=== PATIENT | male | born 1950 | race Caucasian/White ===

== ENCOUNTER → 2016-09-17 11:42 | Outpatient (CLI) | payer MEDICARE, BC ==
[2016-05-22 09:43] VITALS: BMI 27.1
[~2016-09-17 11:42] MED LIST: ASPIRIN325 MG PO; ASPIRIN81 MG PO; CARDIZEM30 MG PO; CORDARONE200 MG PO; HYDROCODON-ACE1 EAC7 PO; K-DUR20 MEQ PO; METOPROLOL TART50 MG PO; MIRALAX17 GM PO; ZESTORETIC 20-1 EACH PO
== END | disposition home or self-care (01) ==
LOC: D.RAD 11:42
DX: C34.32 Malignant neoplasm of lower lobe, left bronchus or lung (principal)

== ENCOUNTER → 2016-10-18 19:20 | Outpatient (CLI) | payer MEDICARE, BC ==
[2016-05-22 09:43] VITALS: BMI 27.1
== END | disposition home or self-care (01) ==
LOC: D.LABREF 19:20
DX: L82.0 Inflamed seborrheic keratosis (principal)

== ENCOUNTER → 2016-12-05 08:29 | Outpatient (CLI) | payer MEDICARE, BC ==
[2016-05-22 09:43] VITALS: BMI 27.1
== END | disposition home or self-care (01) ==
LOC: D.RAD 09-17 10:00 → D.RT 08:29
DX: J44.9 Chronic obstructive pulmonary disease, unspecified (principal)

== ENCOUNTER → 2017-04-03 09:48 | Outpatient (CLI) | payer MEDICARE, BC ==
[2016-05-22 09:43] VITALS: BMI 27.1
[2017-04-03 10:37] LABS: CALC OSMOLALITY 270 mosm/kg (275-300); CALCIUM 8.5 mg/dL (8.5-10.1); CARBON DIOXIDE 29.6 mmol/L (21.0-32.0); CHLORIDE - SERUM 99 mmol/L (98-107); GLUCOSE 96 mg/dL (74-106); POTASSIUM - SERUM 4.1 mmol/L (3.5-5.1); SODIUM 136 mmol/L (136-145); UREA NITROGEN 10 mg/dL (7-18); eGFR NON AFRICAN AMERICAN 79 mL/min (90-120)
== END | disposition home or self-care (01) ==
LOC: D.LAB 09:48 → D.CT 10:30
PROVIDERS: Family Medicine
DX: R55 Syncope and collapse (principal)

== ENCOUNTER → 2017-08-09 12:31 | Outpatient (CLI) | payer MEDICARE, BC ==
[2016-05-22 09:43] VITALS: BMI 27.1
[~2017-08-09 12:31] MED LIST changes: +PRINIVIL20 MG PO
[2017-08-09 13:17] LABS: CREATININE - SERUM 0.9 mg/dL (0.6-1.3)
== END | disposition home or self-care (01) ==
LOC: D.RT 12:31
PROVIDERS: Internal Medicine Pulmonary Disease
DX: C34.90 Malignant neoplasm of unspecified part of unspecified bronchus or lung (principal)

== ENCOUNTER 2017-09-28 11:35 | Observation (INO) | payer MEDICARE, BC ==
[~2017-09-28] VITALS: Ht 170.2 cm; Wt 57.5 kg
[~2017-09-28 11:35] MED LIST changes: -PRINIVIL20 MG PO
[2017-09-28 12:23] LABS: BASOPHILS 0.2 % (0-2); EOSINOPHILS 1.8 % (0-7); HEMATOCRIT 43.5 % (42.0-54.0); HEMOGLOBIN 14.9 g/dL (13.5-17.5); IMMATURE GRANULOCYTES 0.2 % (0-5); LYMPHOCYTES 24.5 % (15-50); MCH 33.6 pg (26.0-34.0); MCHC 34.3 g/dL (31.0-37.0); MCV 98.2 fL (80.0-100.0); MEAN PLATELET VOLUME 10.5 fL (7.4-10.4); NEUTROPHILS 64.3 % (40-80); RBC 4.43 10x6/uL (4.20-6.10); RDW 12.2 % (11.5-14.5)
[2017-09-28 12:29] LABS: PLATELET COUNT 166 10x3/uL (130-400)
[2017-09-28 12:54] LABS: ALBUMIN 3.5 g/dL (3.4-5.0); ALKALINE PHOSPHATASE 82 U/L (46-116); ALT (SGPT) 16 U/L (10-68); BILIRUBIN - TOTAL 1.06 mg/dL (0.2-1.3); CALC OSMOLALITY 269 mosm/kg (275-300); CALCIUM 9.2 mg/dL (8.5-10.1); CARBON DIOXIDE 25.9 mmol/L (21.0-32.0); CHLORIDE - SERUM 98 mmol/L (98-107); GLUCOSE 135 mg/dL (74-106); POTASSIUM - SERUM 4.1 mmol/L (3.5-5.1); PROTEIN - SERUM 7.5 g/dL (6.4-8.2); SODIUM 134 mmol/L (136-145); UREA NITROGEN 13 mg/dL (7-18); eGFR NON AFRICAN AMERICAN 79 mL/min (90-120)
[2017-09-28 12:57] LABS: APPEARANCE CLEAR (CLEAR); BILIRUBIN NEGATIVE (NEGATIVE); COLOR YELLOW (YELLOW); GLUCOSE NEGATIVE (NEGATIVE); KETONE NEGATIVE (NEGATIVE); NITRITE NEGATIVE (NEGATIVE); PROTEIN NEGATIVE (NEGATIVE); SPECIFIC GRAVITY 1.005 (1.005-1.020); UROBILINOGEN NORMAL (NORMAL)
[2017-09-28 13:04] LABS: AMORPHOUS SEDIMENT <1+ /lpf (NONE SEEN); BACTERIA FEW /hpf (NONE SEEN); EPITHELIAL CELLS RARE /hpf (0-5); GRANULAR CAST OCC /lpf (NONE SEEN); WHITE CELLS - URINE OCC /hpf (0-5)
[2017-09-28 13:14] LABS: TROPONIN-I 0.097 ng/mL (0.000-0.060)
[2017-09-28 14:39] LABS: CKMB 0.6 U/L (0.0-3.6); CREATINE KINASE 39 UL (21-232)
[2017-09-28] MEDS ORDERED: PRINIVIL20 MG PO (16:45)
[2017-09-28 16:46] VITALS: BP 164/93; BMI 20.1
[2017-09-28 19:00] VITALS: BP 140/91
[2017-09-28 20:39] LABS: CREATINE KINASE 48 UL (21-232)
[2017-09-28 20:40] LABS: TROPONIN-I 0.095 ng/mL (0.000-0.060)
[2017-09-29 01:00] VITALS: BP 100/65
[2017-09-29 03:34] VITALS: BP 110/69
[2017-09-29 04:43] LABS: BASOPHILS 0.2 % (0-2); EOSINOPHILS 4.9 % (0-7); HEMATOCRIT 39.3 % (42.0-54.0); HEMOGLOBIN 13.5 g/dL (13.5-17.5); IMMATURE GRANULOCYTES 0.2 % (0-5); LYMPHOCYTES 29.9 % (15-50); MCH 33.5 pg (26.0-34.0); MCHC 34.4 g/dL (31.0-37.0); MCV 97.5 fL (80.0-100.0); MEAN PLATELET VOLUME 10.2 fL (7.4-10.4); MONOCYTES 9.2 % (2-11); NEUTROPHILS 55.6 % (40-80); PLATELET COUNT 146 10x3/uL (130-400); RBC 4.03 10x6/uL (4.20-6.10); RDW 12.1 % (11.5-14.5)
[2017-09-29 04:50] LABS: WBC 4.3 10x3/uL (4.8-10.8)
[2017-09-29 05:10] LABS: ALBUMIN 2.9 g/dL (3.4-5.0); ALKALINE PHOSPHATASE 71 U/L (46-116); ALT (SGPT) 14 U/L (10-68); CALC OSMOLALITY 271 mosm/kg (275-300); CALCIUM 8.5 mg/dL (8.5-10.1); CARBON DIOXIDE 27.1 mmol/L (21.0-32.0); CHLORIDE - SERUM 103 mmol/L (98-107); CREATININE - SERUM 0.8 mg/dL (0.6-1.3); GLUCOSE 78 mg/dL (74-106); POTASSIUM - SERUM 4.2 mmol/L (3.5-5.1); PROTEIN - SERUM 6.4 g/dL (6.4-8.2); SODIUM 137 mmol/L (136-145); UREA NITROGEN 9 mg/dL (7-18); eGFR NON AFRICAN AMERICAN > 90 mL/min (90-120)
[2017-09-29 05:34] LABS: CKMB 0.8 U/L (0.0-3.6); CREATINE KINASE 42 UL (21-232)
[2017-09-29 05:46] LABS: TROPONIN-I 0.104 ng/mL (0.000-0.060)
[2017-09-29 08:32] VITALS: BP 127/79
[2017-09-29 11:24] VITALS: BP 149/87
[2017-09-29 15:31] VITALS: Ht 170.2 cm; Wt 57.5 kg
[2017-09-29 15:46] VITALS: BP 133/101
== END 2017-09-29 16:47 | disposition home or self-care (01) ==
LOC: D.ER 11:35 → D.M2 15:15 → OBSVTIME 18:00 → D.M2 09-29 16:47
PROVIDERS: Family Medicine; Nurse Practitioner Family
DX: R42 Dizziness and giddiness (principal); R79.89 Other specified abnormal findings of blood chemistry; I25.10 Atherosclerotic heart disease of native coronary artery without angina pectoris; Z95.5 Presence of coronary angioplasty implant and graft; Z72.0 Tobacco use; E78.5 Hyperlipidemia, unspecified; I10 Essential (primary) hypertension; J44.9 Chronic obstructive pulmonary disease, unspecified

== ENCOUNTER → 2018-07-22 10:45 | Outpatient (CLI) | payer MEDICARE, BC ==
[2017-09-29 15:31] VITALS: BMI 20.1
[~2018-07-22 10:45] MED LIST changes: +PLAVIX75 MG PO; +PRINIVIL20 MG PO
== END | disposition home or self-care (01) ==
LOC: D.MRI 10:45
DX: R42 Dizziness and giddiness (principal)

== ENCOUNTER → 2018-07-25 10:25 | Outpatient (CLI) | payer MEDICARE, BC ==
[2017-09-29 15:31] VITALS: BMI 20.1
== END | disposition home or self-care (01) ==
LOC: D.CT 10:25
DX: C34.90 Malignant neoplasm of unspecified part of unspecified bronchus or lung (principal)

== ENCOUNTER 2018-08-13 10:58 | Outpatient (CLI) | payer MEDICARE, BC ==
[~2018-08-13] VITALS: Ht 170.2 cm; Wt 57.3 kg
--- NOTE | ~2018-08-13 | HEMODYNAMI ---
PATIENT:UNA DANIEL MEDICAL RECORD: [id number] : 46 LOCATION:[facility] ADMISSION DATE: 08/13/18 Generatedon:08/13/201814:05 Patient name: UNA DANIEL Patient #: [id number] SSN: DO B: 1950 Date of study: 08/13/2018 Page: Of Hemodynamic Procedure Report Patient Data Patient Demographics Procedure consent was obtained First Name: UNA Gender: Male Last Name: MARÍA : 1950 Middle Initial: GUILLERMO Age: 68 year(s) Patient #: [id number] Race: Additional ID: [id number] Contact details Address: [address] [place] [address] State: [place] City: [place] Zip code: [address] Past Medical History Allergies: No known allergies Admission Admission Data Admission Date: 08/13/2018 Admission Time: 10:58 Height (in.): 67 BSA: 1.66 (m2) Height (cm.): 170.18 BMI: 19.73 (kg/m2) Weight (lbs.): 126 Weight (kg.): 57.15 Lab Results Lab Result Date: 08/13/2018 Lab Result Time: 0:00 Biochemistry Name Units Result Min Max BUN mg/dl 11 --(-*--)-- 7 18 Creatinine mg/dl 0.8 --(-*--)-- 0.6 1.3 CBC Name Units Result Min Max Hemoglobin g/dl 13.7 --(*---)-- 13.5 17.5 Procedure Procedure Types Cath Procedure Diagnostic Procedure LHC [facility] w/Coronaries Sedation Charges Moderate Sedation up to 15 minutes PCI Procedure Coronary Stent Coronary Stent Initial Procedure Description Procedure Date Procedure Date: 08/13/2018 Procedure Start Time: 13:32 Procedure End Time: 13:59 Procedure Staff Name Function Minesh Cruz MD Performing Physician Howard Aranda RN Nurse Nayeli Arellano RT Scrub Aletha Edwards RT Monitor Procedure Data Cath Procedure Fluoroscopy Diagnostic fluoroscopy Total fluoroscopy Time: 4.5 time: 4.5 min min Diagnostic fluoroscopy Total fluoroscopy dose: 630 dose: 630 mGy mGy Contrast Material Contrast Material Type Amount (ml) Isovue 300 107 Entry Location Entry Primary Successful Side Size Upsize Upsize Entry Closure Succes sful Closure Location (Fr) 1 (Fr) 2 (Fr) Remarks Device Remarks Femoral Right 5 Fr 6 Fr artery Short Estimated blood loss: 10 ml Diagnostic catheters Device Type Used For End Catheter Placement MULTIPACK JL 4.0 5Fr Procedure catheter MULTIPACK 3DRC 5Fr Procedure catheter MULTIPACK Pigtail 5 Fr Procedure catheter Procedure Complications No complications Procedure Medications Medication Administration Route Dosage 0.9% NaCl I.V. 100 ml/hr Oxygen etCO2 Nasal cannula 2 l/min Heparin Flush Bag added to field 2 bags (1000units/500ml NS) Lidocaine 2% added to field 20 Radial Cocktail added to field 1 syringe (Verapomil 2mg/Nitro 400mcg/Heparin 1500units) Versed I.V. 2 mg Fentanyl I.V. 100 mcg Versed I.V. 1 mg Fentanyl I.V. 50 mcg Heparin Bolus I.V. 5700 units Plavix P.O. 600 mg Hemodynamics Rest BSA: 1.66 (m2) HGB: 13.7 (g/dl) O2 Consumption: Estimated: 195.01 (ml/min) O2 Co nsumption indexed: Estimated:117.48 (ml/min/m) Heart Rate: 75 (bpm) Pressure Samples Time Site Value (mmHg) Purpose Heart Use Rate(bpm) 13:41 LV 82/-12,-8 Snapshot 147 13:42 AO 130/74(98) Pullback 90 13:42 LV 132/-8,19 Pullback 90 Gradients Valve Time Site 1 Site 2 Mean SEP/DFP Peak To Heart Use (mmHg) (sec/min) Peak Rate (mmHg) (bpm) Aortic 13:42 LV AO 11 19 2 90 132/-8,19 130/74(98) Calculations Valve P-P Mean Valve Index Valve Source Name Gradient Area Flow (cm2) Aortic 2 11 2 11 Snapshots Pre Cath Intra NCS Post Cath Vital Signs Time Heart Resp SPO2 etCO2 NIBP (mmHg) Rhythm Pain Sedation Rate (ipm) (%) (mmHg) Status Level (bpm) 13:07:55 79 16 100 33.4 147/101(133) NSR 0 (11) 10(A) , No pain 13:12:05 75 16 100 33.3 144/85(122) NSR 0 (11) 10(A) , No pain 13:16:15 78 14 99 35.6 129/86(111) NSR 0 (11) 10(A) , No pain 13:20:16 80 13 98 0 141/95(124) NSR 0 (11) 10(A) , No pain 13:24:22 78 13 96 0 136/95(121) NSR 0 (11) 10(A) , No pain 13:28:28 75 13 96 36.4 140/90(116) NSR 0 (11) 10(A) , No pain 13:32:36 72 11 97 12.9 136/87(113) NSR 0 (11) 10(A) , No pain 13:36:42 75 10 96 0 140/90(125) NSR 0 (11) 10(A) , No pain 13:40:47 78 12 94 31.1 139/90(110) NSR 0 (11) 10(A) , No pain 13:44:55 82 10 95 0 134/86(111) NSR 0 (11) 10(A) , No pain 13:48:59 77 11 96 22 140/91(117) NSR 0 (11) 10(A) , No pain 13:53:07 77 12 96 36.4 132/88(112) NSR 0 (11) 10(A) , No pain 13:57:11 77 11 96 24.2 135/87(114) NSR 0 (11) 10(A) , No pain Medications Time Medication Route Dose Verified Delivered Reason Not es Effectiveness by by 13:08:01 0.9% NaCl I.V. 100 Howard Howard Per physician ml/hr Manoj Aranda RN RN 13:08:11 Oxygen etCO2 2 l/min Howard Howard Per physician Nasal Manoj Aranda cannula RN RN 13:08:21 Heparin Flush added 2 bags Howard Howard used for Bag to Manoj Aranda procedure (1000units/500ml field MCGHEE RN NS) 13:08:32 Lidocaine 2% added 20ml Howard Howard for local to vial Lorigan Manoj anesthetic field MCGHEE RN 13:08:57 Radial Cocktail added 1 Howard Howard used for (Verapomil to syringe Manoj Aranda procedure 2mg/Nitro field RN RN 400mcg/Heparin 1500units) 13:32:52 Versed I.V. 2 mg Howard Howard for sedation Manoj Aranda RN RN 13:34:46 Fentanyl I.V. 100 mcg Howard Howard for sedation Manoj Aranda RN, RN 13:37:32 Versed I.V. 1 mg Howard Howard for sedation Manoj Aranda RN, RN 13:37:39 Fentanyl I.V. 50 mcg Howard Howard for sedation Manoj Aranda RN RN 13:48:47 Heparin Bolus I.V. 5,700 Howard Howard for units Manoj Aranda anticoagulation RN RN 13:56:30 Plavix P.O. 600 mg Howard Howard for Manoj Aranda antiplatelet RN RN therapy Procedure Log Time Note 12:49:40 Diagnostic Cath Status : Elective 12:49:45 Howard Aranda RN sent for patient. Start room use. 12:49:46 Time tracking: Regular hours (M-F 7:00 - 5:00) 12:49:51 Plan of Care:Hemodynamics will remain stable., Cardiac rhythm will remain stable., Comfort level will be maintained., Respiratory function will remain adequate., Patient/ family verbilizes understanding of procedure., Procedure tolerated without complication., Recovers from procedure without complications.. 12:56:52 Patient received from Pre/Post Procedure Room to CCL 2 Alert and oriented. Tansferred to table in Supine position. 12:56:53 Warm blankets applied, and dean hugger turned on for patient comfort. 12:56:54 Correct patient and procedure confirmed by team. 12:56:55 Signed procedure consent form obtained from patient. 12:56:56 ECG and BP/O2 sat monitors applied to patient. 13:06:50 Baseline sample Acquired. 13:06:50 Vital chart was started 13:06:55 Rhythm: sinus rhythm 13:06:56 Full Disclosure recording started 13:07:13 H&P Date Dictated: 08/05/2018 Within 30 days and on chart., H&P Addendum completed by physician on day of procedure. (MUST COMPLETE FOR ALL OUTPATIENTS). 13:07:14 Pre-procedure instructions explained to patient. 13:07:14 Pre-op teaching completed and patient verbalized understanding. 13:07:15 Family in waiting room. 13:07:16 Patient NPO since Midnight. 13:07:21 Patient allergic to No known allergies 13:07:23 Is the patient allergic to Iodine/contrast media? No. 13:07:24 Is patient on blood thinner?No 13:07:25 Patient diabetic? No. 13:07:29 Previous problem with sedation/anesthesia? No ? 13:07:31 Snore? Yes 13:07:32 Sleep apnea? No 13:07:32 Deviated septum? No 13:07:33 Opens mouth fully? Yes 13:07:33 Sticks out tongue? Yes 13:07:36 Airway obstruction? No ? 13:07:41 Dentures? Yes in tight 13:08:01 0.9% NaCl 100 ml/hr I.V. was administered by Howard Aranda RN; Per physician; 13:08:11 Oxygen 2 l/min etCO2 Nasal cannula was administered by Howard Aranda RN; Per physician; 13:08:14 Modified Quinten's test Ulnar < 7 seconds 13:08:17 Patient pain scale 0/10 .. 13:08:21 Heparin Flush Bag (1000units/500ml NS) 2 bags added to field was administered by Howard Aranda RN; used for procedure; 13:08:22 IV patent on arrival in left forearm with 0.9% NaCl at [facility]. 13:08:32 Lidocaine 2% 20ml vial added to field was administered by Howard Aranda RN; for local anesthetic; 13:08:57 Radial Cocktail (Verapomil 2mg/Nitro 400mcg/Heparin 1500units) 1 syringe added to field was administered by Howard Aranda RN; used for procedure; 13:17:16 Lab Result : BUN 11 mg/dl 13:17:17 Lab Result : Hemoglobin 13.7 g/dl 13:17:17 Lab Result : Creatinine 0.8 mg/dl 13:17:22 Lab results completed and on chart. 13:17:32 Right Radial & Right Groin area was prepped with chlora-prep and draped in sterile fashion 13:17:34 Alarms reviewed by R. N. 13:17:35 Sharps counted by scrub and verified by R.N. 13:18:27 Patient Height : 67 inches 13:18:57 Patient Weight : 126 lbs 13:28:19 Physician arrived 13:28:20 --------ALL STOP TIME OUT------ 13:28:20 Final Timeout: patient, procedure, and site verified with staff and physician. All members of the team are in agreement. 13:28:25 Right Radial & Right Groin site verified by team. 13:28:29 Physical assessment completed. ASA score P 2 - A patient with mild systemic disease as per Minesh Cruz MD. 13:28:34 Sedation plan: IV Moderate Sedation Medication:Versed, Fentanyl 13:28:42 Use device set Radial Dx or PCI 13:28:43 ACIST Syringe (40028) opened to sterile field. 13:28:44 Medline Cath Pack ([id number]) opened to sterile field. 13:28:44 Bag Decanter (2002S) opened to sterile field. 13:28:46 DIAGNOSTIC WIRE .035 260cm J wire (843635) opened to sterile field. 13:28:46 ACIST Hand Control (60462) opened to sterile field. 13:28:47 ACIST Manifold (90906) opened to sterile field. 13:28:47 Tegaderm 4 x 4 (1626W) opened to sterile field. 13:28:49 MBrace Wrist Support ([id number]) opened to sterile field. 13:28:52 SHEATH 6FR Slender (59-8838) opened to sterile field. 13:30:33 Zero performed for pressure channel P1 13:30:42 Procedure started. 13:32:27 Local anesthetic to right femoral artery with Lidocaine 2% by Minesh Cruz MD.INITIAL ACCESS ONLY 13:32:45 SHEATH 5FR Orrtanna (BSQ778) opened to sterile field. 13:32:52 Versed 2 mg I.V. was administered by Howard Aranda RN; for sedation; 13:32:58 A 5 Fr sheath was inserted into the Right Femoral artery 13:34:09 DIAGNOSTIC Multipack 5Fr catheter set (DN6017) opened to sterile field. 13:34:46 Fentanyl 100 mcg I.V. was administered by Howard Aranda RN; for sedation; 13:37:09 Zero performed for pressure channel P1 13:37:18 Zero performed for pressure channel P1 13:37:32 Versed 1 mg I.V. was administered by Howard Aranda RN; for sedation; 13:37:39 Fentanyl 50 mcg I.V. was administered by Howard Aranda RN; for sedation; 13:38:05 A MULTIPACK JL 4.0 5Fr catheter was advanced over the wire and used for Procedure. 13:38:08 LCA angiography performed. 13:38:10 Catheter removed. 13:38:22 A MULTIPACK 3DRC 5Fr catheter was advanced over the wire and used for Procedure. 13:39:35 RCA angiography performed. 13:39:38 Catheter removed. 13:41:12 A MULTIPACK Pigtail 5 Fr catheter was advanced over the wire and used for Procedure. 13:41:21 LV angiography performed. 13:43:07 EF : 55 % 13:44:37 Catheter removed. 13:44:39 Proceeding to intervention. 13:45:08 Sheath upsized to a 6 Fr Short. 13:46:14 SHEATH 6FR Orrtanna (GQK172) opened to sterile field. 13:46:15 INFLATOR Merit BasixCompak (XG7237) opened to sterile field. 13:46:15 BMW 190cm [place] 2 J wire ([id number]) opened to sterile field. 13:46:16 GUIDE 6FR XBLAD 4.0 catheter ([id number]) opened to sterile field. 13:46:27 TUBING High Pressure Extension Tubing (Cruz) ([id number]) opened to sterile field. 13:46:59 BMW wire advanced. 13:48:47 Heparin Bolus 5,700 units I.V. was administered by Howard Aranda RN; for anticoagulation; 13:53:15 Place stent Inflation Number: 1 A JAMIE OTW 3.0 x 26 stent ([id number]) was prepped and advanced across the Dist CX. The stent was deployed at 10 FRANDY for 0:11 (min:sec). 13:54:06 Stent catheter was removed intact over wire. 13:55:51 EXOSEAL 6Fr (EX600) opened to sterile field. 13:56:30 Plavix 600 mg P.O. was administered by Howard Aranda RN; for antiplatelet therapy; 13:56:40 Wire removed. 13:56:41 Guide catheter removed. 13:56:56 Procedure ended.(Physican Out) 13:57:12 Fluoroscopy time 04.50 minutes. 13:57:18 Fluoroscopy dose: 630 mGy 13:57:18 Flurop Dose total: 630 13:57:34 Contrast amount:Isovue 300 107ml. 13:57:43 Insertion/operative site no bleeding no hematoma. 13:57:48 Post-op/insertion site Right Femoral artery dressed using a 4 x 4 and Tegaderm. 13:57:50 Post Procedure Pulses reassessed and unchanged 13:57:58 Post-procedure physical assessment completed. ASA score P 2 - A patient with mild systemic disease as per Minesh Cruz MD. 13:58:02 Post procedure rhythm: unchanged. 13:58:06 Estimated blood loss: 10 ml 13:58:08 Post procedure instruction explained to patient.Patient verbalizes understanding. 13:58:27 Procedure type changed to Cath procedure, Diagnostic procedure, LHC, LHC w/Coronaries, Sedation Charges, Moderate Sedation up to 15 minutes, PCI procedure, Coronary Stent, Coronary Stent Initial 13:58:30 Procedure and supply charges have been captured, reviewed, submitted and are correct. 13:59:09 Procedure Complication : No complications 13:59:11 Vital chart was stopped 13:59:16 See physician's report for complete and final results. 13:59:23 Report given to Pre/Post Procedure Room. 13:59:27 Patient transfered to Pre/Post Procedure Room with Stretcher. 13:59:29 Procedure ended. 13:59:29 Full Disclosure recording stopped 13:59:34 End room use (Document Last) 14:00:44 ACC-PCI Only Patient was given prescriptions, or instructed by Minesh Cruz MD to start/continue the following medications upon discharge: Plavix Intervention Summary Intervention Notes Time ActionType Lesion and Equipment Action# Pressure Duration Attributes Used 13:53:15 Place stent Dist CX JAMIE OTW 3.0 1 10 00:12 x 26 stent ([id number]) Device Usage Item Name Manufacture Quantity Catalog Hospital Part Current Mini mal Lot# / Number Charge Number Stock Stock Serial# Code ACIST Syringe Acist 1 60908 074157 605190 186300 20 (47275) [employer]s Medline Cath Medline 1 [id number] 347958 04507 125196 5 Pack ([id number]) Bag Decanter Microtek 1 911073 69541 801570 5 (2002S) Medical Inc. DIAGNOSTIC St Donta 1 014971 886378 463072 009365 30 WIRE .035 260cm J wire (932875) ACIST Hand Acist 1 16639 921119 324226 241200 5 Control Medical (11307) Systems Inc ACIST Acist 1 43687 904186 938880 311447 5 Manifold Medical (06995) Systems Inc Tegaderm 4 x 3M 1 1626W 764549 042701 599832 5 4 (1626W) MBrace Wrist Advanced 1 140-0250-00 657207 09406 037530 5 Support Vascular (271708808) Dynamics SHEATH 6FR Terumo 1 [id number] 062876 275357 673252 40 Slender (80-1060) SHEATH 5FR Terumo 1 PBX432 282280 809490 428210 40 Orrtanna (CCE739) DIAGNOSTIC Cardinal 1 DZ5742 810170 03431 150465 30 Multipack 5Fr Health catheter set (LE5435) MULTIPACK JL Cardinal 1 864625 5 4.0 5Fr Health catheter MULTIPACK Cardinal 1 238180 5 3DRC 5Fr Health catheter MULTIPACK Cardinal 1 808786 5 Pigtail 5 Fr Health catheter SHEATH 6FR Terumo 1 MBV031 749291 477820 376115 40 Orrtanna (AXI011) INFLATOR Merit 1 LY2638 497664 804723 233277 15 Merit Medical BasixCompak (XU7714) BMW 190cm Mcguire 1 [id number] 648230 07548 223207 5 [place] 2 J Vascular wire (8201185H) GUIDE 6FR Cardinal 1 [id number] 485153 094672 099998 3 XBLAD 4.0 Health catheter (43277298) TUBING High Merit 1 [id number] 093691 57670 734156 10 Pressure Medical Extension Tubing (Cruz) (ZK4727X) JAMIE OTW 3.0 Medtronic 1 [id number] 640970 3041562 442871 5 [id number] x 26 stent ([id number]) EXOSEAL 6Fr Cardinal 1 EX600 263576 322688 110971 10 (EX600) Health Signature Audit [place] Stage Time Signature Unsigned Intra-Procedure 08/13/2018 Aletha Edwards 2:05:11 PM RT(R) Signatures Monitor : Aletha Edwards Signature : RT Date : Time : [facility] [address] [place] [address]
[~2018-08-13 10:58] MED LIST changes: -PLAVIX75 MG PO
[2018-08-13 11:35] VITALS: BP 167/97; Ht 170.2 cm; Wt 57.3 kg
[2018-08-13 11:40] LABS: BASOPHILS 0.3 % (0-2); EOSINOPHILS 2.4 % (0-7); HEMATOCRIT 40.1 % (42.0-54.0); HEMOGLOBIN 13.7 g/dL (13.5-17.5); IMMATURE GRANULOCYTES 0.2 % (0-5); LYMPHOCYTES 19.6 % (15-50); MCH 33.7 pg (26.0-34.0); MCHC 34.2 g/dL (31.0-37.0); MCV 98.5 fL (80.0-100.0); MONOCYTES 9.6 % (2-11); NEUTROPHILS 67.9 % (40-80); PLATELET COUNT 165 10x3/uL (130-400); RBC 4.07 10x6/uL (4.20-6.10); RDW 12.5 % (11.5-14.5); WBC 5.9 10x3/uL (4.8-10.8)
[2018-08-13 11:47] LABS: CALC OSMOLALITY 279 mosm/kg (275-300); CALCIUM 8.8 mg/dL (8.5-10.1); CARBON DIOXIDE 26.8 mmol/L (21.0-32.0); CHLORIDE - SERUM 103 mmol/L (98-107); CREATININE - SERUM 0.8 mg/dL (0.6-1.3); GLUCOSE 90 mg/dL (74-106); POTASSIUM - SERUM 3.8 mmol/L (3.5-5.1); SODIUM 141 mmol/L (136-145); UREA NITROGEN 11 mg/dL (7-18); eGFR NON AFRICAN AMERICAN > 90 mL/min (90-120)
[2018-08-13] MEDS ORDERED: PLAVIX75 MG PO (14:36)
[2018-08-13] MEDS ORDERED: ASPIRIN81 MG PO (14:36)
== END 2018-08-13 18:00 | disposition home or self-care (01) ==
LOC: D.CATH 10:58
PROVIDERS: Internal Medicine Cardiovascular Disease
DX: T82.855A Stenosis of coronary artery stent, initial encounter (principal); Y83.8 Other surgical procedures as the cause of abnormal reaction of the patient, or of later complication, without mention of misadventure at the time of the procedure; I25.119 Atherosclerotic heart disease of native coronary artery with unspecified angina pectoris
CPT/HCPCS: 93458; C9600

== ENCOUNTER 2018-08-27 11:33 | Outpatient (CLI) | payer MEDICARE, BC ==
[~2018-08-27] VITALS: Ht 170.2 cm; Wt 57.7 kg
--- NOTE | ~2018-08-27 | HEMODYNAMI ---
PATIENT:UNA DANIEL MEDICAL RECORD: [id number] : 46 LOCATION:[facility] ADMISSION DATE: 08/27/18 Generatedon:08/27/201813:24 Patient name: UNA DANIEL Patient #: [id number] SSN: DO B: 1950 Date of study: 08/27/2018 Page: Of Hemodynamic Procedure Report Patient Data Patient Demographics Procedure consent was obtained First Name: UNA Gender: Male Last Name: MARÍA : 1950 Middle Initial: GUILLERMO Age: 68 year(s) Patient #: [id number] Race: Additional ID: [id number] Contact details [address]: [address] [place] [address] State: [place] City: [place] Zip code: [address] Past Medical History Allergies: No known allergies Admission Admission Data Admission Date: 08/27/2018 Admission Time: 11:33 Weight (lbs.): 127.87 Weight (kg.): 58 Lab Results Lab Result Date: 08/27/2018 Lab Result Time: 0:00 Biochemistry Name Units Result Min Max BUN mg/dl 12 --(-*--)-- 7 18 Creatinine mg/dl 0.8 --(-*--)-- 0.6 1.3 CBC Name Units Result Min Max Hemoglobin g/dl 13 -*(----)-- 13.5 17.5 Platelets 10^3/l 203 --(-*--)-- 130 400 Procedure Procedure Types Cath Procedure PCI Procedure Coronary Stent Coronary Stent Initial Procedure Description Procedure Date Procedure Date: 08/27/2018 Procedure Start Time: 13:05 Procedure End Time: 13:23 Procedure Staff Name Function Minesh Cruz MD Performing Physician Zachary Jimenes RT Monitor Hoawrd Aranda RN Nurse Ava Canela RT Scrub Procedure Data Cath Procedure Fluoroscopy Diagnostic fluoroscopy Total fluoroscopy Time: 3.7 time: 3.7 min min Diagnostic fluoroscopy Total fluoroscopy dose: 82 dose: 82 mGy mGy Contrast Material Contrast Material Type Amount (ml) Isovue 300 52 Entry Location Entry Primary Successful Side Size Upsize Upsize Entry Closure Succes sful Closure Location (Fr) 1 (Fr) 2 (Fr) Remarks Device Remarks Femoral Right 6 Fr Exoseal artery Short Estimated blood loss: 10 ml Procedure Complications No complications Procedure Medications Medication Administration Route Dosage 0.9% NaCl I.V. 100 ml/hr Oxygen etCO2 Nasal cannula 2 l/min Heparin Flush Bag added to field 2 bags (1000units/500ml NS) Lidocaine 2% added to field 20 Versed I.V. 2 mg Fentanyl I.V. 100 mcg Versed I.V. 1 mg Heparin Bolus I.V. 6000 units Hemodynamics Rest HGB: 13 (g/dl) Heart Rate: 72 (bpm) Pressure Samples Time Site Value (mmHg) Purpose Heart Use Rate(bpm) 13:09 AO 125/71(91) Snapshot 63 Snapshots Pre Cath Intra NCS Post Cath Vital Signs Time Heart Resp SPO2 etCO2 NIBP (mmHg) Rhythm Pain Sedation Rate (ipm) (%) (mmHg) Status Level (bpm) 12:43:36 65 17 100 0 146/90(125) NSR 0 (11) 10(A) , No pain 12:47:50 62 18 100 35.8 140/86(103) NSR 0 (11) 10(A) , No pain 12:52:02 63 19 100 0 135/87(99) NSR 0 (11) 10(A) , No pain 12:56:14 56 13 100 18.6 129/78(93) NSR 0 (11) 10(A) , No pain 13:00:22 65 13 99 25.3 122/83(93) NSR 0 (11) 10(A) , No pain 13:04:28 66 12 96 0 127/83(101) NSR 0 (11) 10(A) , No pain 13:08:38 59 14 99 32.8 133/78(90) NSR 0 (11) 10(A) , No pain 13:12:49 82 14 99 33.5 137/92(113) NSR 0 (11) 9(A) , No pain 13:17:01 72 15 97 25.3 120/83(104) NSR 0 (11) 9(A) , No pain 13:21:07 70 14 96 0 121/81(105) NSR 0 (11) 9(A) , No pain Medications Time Medication Route Dose Verified Delivered Reason Notes Effectiveness by by 12:45:16 0.9% NaCl I.V. 100 Howard Howard Per physician ml/hr Manoj Aranda RN RN 12:45:26 Oxygen etCO2 2 Howard Howard Per physician Nasal l/min Manoj Aranda cannula RN RN 12:45:37 Heparin Flush added 2 Howard Howard used for Bag to bags Manoj Aranda procedure (1000units/500ml field RN RN NS) 12:45:51 Lidocaine 2% added 20ml Howard Howard for local to vial Manoj Aranda anesthetic field RN RN 12:58:49 Versed I.V. 2 mg Howard Howard for sedation Manoj Aranda RN RN 12:58:59 Fentanyl I.V. 100 Howard Howard for sedation mcg Manoj Aranda RN RN 13:07:51 Versed I.V. 1 mg Howard Howard for sedation Manoj Aranda RN RN 13:09:30 Heparin Bolus I.V. 6,000 Howard Howard for units Manoj Aranda anticoagulation RN heading repairer Log Time Note 12:30:39 Howard Aranda RN sent for patient. Start room use. 12:30:40 Time tracking: Regular hours (M-F 7:00 - 5:00) 12:30:43 Plan of Care:Hemodynamics will remain stable., Cardiac rhythm will remain stable., Comfort level will be maintained., Respiratory function will remain adequate., Patient/ family verbilizes understanding of procedure., Procedure tolerated without complication., Recovers from procedure without complications.. 12:34:32 Patient received from Pre/Post Procedure Room to CCL 3 Alert and oriented. Tansferred to table in Supine position. 12:34:33 Warm blankets applied, and dean hugger turned on for patient comfort. 12:34:34 Correct patient and procedure confirmed by team. 12:34:35 Signed procedure consent form obtained from patient. 12:34:36 ECG and BP/O2 sat monitors applied to patient. 12:34:37 Full Disclosure recording started 12:42:29 Vital chart was started 12:42:33 Baseline sample Acquired. 12:42:38 Rhythm: sinus rhythm 12:42:46 H&P Date Dictated: 08/27/2018 Within 30 days and on chart., New H&P dictated by physician.. 12:42:47 Pre-procedure instructions explained to patient. 12:42:47 Pre-op teaching completed and patient verbalized understanding. 12:42:50 Family in patients room. 12:42:51 Patient NPO since Midnight. 12:42:53 Is the patient allergic to Iodine/contrast media? No. 12:42:55 Is patient on blood thinner?Yes 12:42:57 ACC The patient was administered the following blood thiners within the last 24 hours: ACCPlavix 12:43:04 Patient diabetic? No. 12:43:06 Previous problem with sedation/anesthesia? No ? 12:43:07 Snore? No 12:43:08 Sleep apnea? No 12:43:09 Deviated septum? No 12:43:10 Opens mouth fully? Yes 12:43:10 Sticks out tongue? Yes 12:43:17 Airway obstruction? No ? 12:43:20 Dentures? Yes IN 12:43:23 Pre procedure: right dorsailis pedis pulse 1+ Palpable, but thready & weak; easily obliterated 12:43:25 Patient pain scale 0/10 ?. 12:43:29 IV patent on arrival in left forearm with 0.9% NaCl at [facility]. 12:43:31 Lab results completed and on chart. 12:43:34 Right groin area was prepped with chlora-prep and draped in sterile fashion 12:43:34 Alarms reviewed by R. N. 12:43:35 Sharps counted by scrub and verified by R.N. 12:43:46 Patient Weight : 127.87 lbs 12:45:16 0.9% NaCl 100 ml/hr I.V. was administered by Howard Aranda RN; Per physician; 12:45:26 Oxygen 2 l/min etCO2 Nasal cannula was administered by Howard Aranda RN; Per physician; 12:45:37 Heparin Flush Bag (1000units/500ml NS) 2 bags added to field was administered by Howard Aranda RN; used for procedure; 12:45:51 Lidocaine 2% 20ml vial added to field was administered by Howard Aranda RN; for local anesthetic; 12:53:56 Zero performed for pressure channel P1 12:54:48 Lab Result : Hemoglobin 13 g/dl 12:54:48 Lab Result : Creatinine 0.8 mg/dl 12:54:48 Lab Result : BUN 12 mg/dl 12:54:48 Lab Result : Platelets 203 10^3/l 12:57:48 --------ALL STOP TIME OUT------ 12:57:48 Final Timeout: patient, procedure, and site verified with staff and physician. All members of the team are in agreement. 12:57:51 Right groin site verified by team. 12:57:53 Physical assessment completed. ASA score P 2 - A patient with mild systemic disease as per Minesh Cruz MD. 12:57:57 Sedation plan: IV Moderate Sedation Medication:Versed, Fentanyl 12:58:49 Versed 2 mg I.V. was administered by Howard Aranda RN; for sedation; 12:58:53 Use device set Radial Dx or PCI 12:58:57 Use device set CRUZ PCI 12:58:59 Fentanyl 100 mcg I.V. was administered by Howard Aranda RN; for sedation; 12:59:00 ACIST Manifold (00972) opened to sterile field. 12:59:01 ACIST Hand Control (79355) opened to sterile field. 12:59:01 Bag Decanter (2002S) opened to sterile field. 12:59:04 Tegaderm 4 x 4 (1626W) opened to sterile field. 12:59:05 Medline Cath Pack ([id number]) opened to sterile field. 12:59:05 ACIST Syringe (97845) opened to sterile field. 12:59:10 DIAGNOSTIC WIRE .035 260cm J wire (079250) opened to sterile field. 12:59:11 TUBING High Pressure Extension Tubing (Anthony) ([id number]) opened to sterile field. 12:59:12 INFLATOR Merit BasixCompak (NB6764) opened to sterile field. 12:59:15 SHEATH 6FR [place] (VJS183) opened to sterile field. 12:59:24 BMW 300cm [place] 2 J wire ([id number]) opened to sterile field. 13:05:20 Procedure started. 13:05:22 Local anesthetic to right femoral artery with Lidocaine 2% by Minesh Cruz MD.INITIAL ACCESS ONLY 13:06:42 GUIDE 6FR XBLAD 4.0 catheter ([id number]) opened to sterile field. 13:07:08 A 6 Fr Short sheath was inserted into the Right Femoral artery 13:07:34 6 Fr XBLAD 4 guide catheter was inserted over the wire 13:07:51 Versed 1 mg I.V. was administered by Howard Aranda RN; for sedation; 13:08:58 BMW wire advanced. 13:09:30 Heparin Bolus 6,000 units I.V. was administered by Howard Aranda RN; for anticoagulation; 13:10:31 Wire advanced across lesion. 13:12:12 Inflate balloon Inflation number: 1 A EUPHORA 2.5 x 20 Balloon ([id number]) was prepped and advanced across the Mid CX, then inflated to 8 FRANDY for 0:10 (min:sec). 13:12:52 Multiple inflations made at 8 atms. 13:15:08 Balloon removed over the wire. 13:16:43 Place stent Inflation Number: 2 A JAMIE OTW 2.5 x 30 stent ([id number]) was prepped and advanced across the Mid CX. The stent was deployed at 10 FRANDY for 0:10 (min:sec). 13:17:55 Stent catheter was removed intact over wire. 13:17:56 Wire removed. 13:17:56 Guide catheter removed. 13:17:58 EXOSEAL 6Fr (EX600) opened to sterile field. 13:18:21 Sheath removed intact; hemostasis achieved with Exoseal to the Right Femoral artery. 13:18:24 Procedure ended.(Physican Out) 13:20:02 Fluoroscopy time 03.70 minutes. 13:20:07 Fluoroscopy dose: 82 mGy 13:20:07 Flurop Dose total: 82 13:20:11 Contrast amount:Isovue 300 52ml. 13:20:13 Sharps counted by scrub and verified by R.N. 13:20:14 Insertion/operative site no bleeding no hematoma. 13:20:17 Post-op/insertion site Right Femoral artery dressed using a 4 x 4 and Tegaderm. 13:20:18 Post Procedure Pulses reassessed and unchanged 13:20:21 Post-procedure physical assessment completed. ASA score P 2 - A patient with mild systemic disease as per Minesh Cruz MD. 13:20:24 Post procedure rhythm: unchanged. 13:20:27 Estimated blood loss: 10 ml 13:20:29 Post procedure instruction explained to patient.Patient verbalizes understanding. 13:20:30 Patient needs reinforcement of post procedure teaching. 13:20:34 Procedure and supply charges have been captured, reviewed, submitted and are correct. 13:20:37 Procedure Complication : No complications 13:20:55 Vital chart was stopped 13:20:56 See physician's report for complete and final results. 13:20:57 Report given to Pre/Post Procedure Room. 13:21:00 Patient transfered to Pre/Post Procedure Room with Stretcher. 13:23:19 Procedure ended. 13:23:19 Full Disclosure recording stopped 13:23:23 End room use (Document Last) Intervention Summary Intervention Notes Time ActionType Lesion and Equipment Action# Pressure Duration Attributes Used 13:12:12 Inflate Mid CX EUPHORA 2.5 x 1 8 00:10 balloon 20 Balloon ([id number]) 13:16:43 Place stent Mid CX JAMIE OTW 2.5 2 10 00:10 x 30 stent ([id number]) Device Usage Item Name Manufacture Quantity Catalog Hospital Part Current Minim al Lot# / Number Charge Number Stock Stock Serial# Code ACIST Acist 1 [id number] 668567 660194 735922 5 Manifold Medical (78716) Systems Inc ACIST Hand Acist 1 17829 666772 801898 912680 5 Control Medical (04756) Systems Inc Bag Decanter Microtek 1 2002S 685199 53833 996016 5 (2001S) Medical Inc. Tegaderm 4 x 3M 1 1626W 947144 048084 341197 5 4 (1626W) Medline Cath Medline 1 [id number] 017018 01689 870152 5 Pack ([id number]) ACIST Syringe Acist 1 88574 398375 928110 996780 20 (86224) Medical Systems Inc DIAGNOSTIC St [place] 1 219530 499620 907519 758123 30 WIRE .035 260cm J wire (814371) TUBING High Merit 1 [id number] 719723 22275 389058 10 Pressure Medical Extension Tubing (Anthony) ([id number]) INFLATOR Merit 1 VE2300 350748 516752 604808 15 [facility] Medical BasixCompak (JX0576) SHEATH 6FR Terumo 1 MIK320 786816 831805 675956 40 [place] (CDK202) BMW 300cm Mcguire 1 [id number] 660500 425402 811979 5 [place] 2 J Vascular wire (8224412U) GUIDE 6FR Cardinal 1 [id number] 503103 379179 131933 3 XBLAD 4.0 Health catheter (66131830) EUPHORA 2.5 x Medtronic 1 [id number] 595727 149518 786895 5 [id number] 20 Balloon ([id number]) JAMIE OTW 2.5 Medtronic 1 [id number] 556054 86288 906790 5 [id number] x 30 stent ([id number]) EXOSEAL 6Fr Cardinal 1 EX600 288313 229126 699681 10 (EX600) Health Signature Audit [place] Stage Time Signature Unsigned Intra-Procedure 08/27/2018 Zachary Jimenes 1:24:00 PM RT(R) Signatures Monitor : Zachary Jimenes RT Signature : Date : Time : [place] [id number] [place] [address]
[~2018-08-27 11:33] MED LIST changes: +PLAVIX75 MG PO
[2018-08-27 12:09] VITALS: BP 159/85; Ht 170.2 cm; Wt 57.7 kg
[2018-08-27 12:22] LABS: BASOPHILS 0.6 % (0-2); HEMATOCRIT 37.9 % (42.0-54.0); IMMATURE GRANULOCYTES 0.2 % (0-5); LYMPHOCYTES 19.7 % (15-50); MCH 33.5 pg (26.0-34.0); MCHC 34.3 g/dL (31.0-37.0); MCV 97.7 fL (80.0-100.0); MONOCYTES 8.7 % (2-11); NEUTROPHILS 67.8 % (40-80); RBC 3.88 10x6/uL (4.20-6.10); WBC 6.3 10x3/uL (4.8-10.8)
[2018-08-27 12:23] LABS: PLATELET COUNT 203 10x3/uL (130-400)
[2018-08-27 12:32] LABS: CALC OSMOLALITY 272 mosm/kg (275-300); CALCIUM 8.9 mg/dL (8.5-10.1); CARBON DIOXIDE 26.6 mmol/L (21.0-32.0); CHLORIDE - SERUM 102 mmol/L (98-107); CREATININE - SERUM 0.8 mg/dL (0.6-1.3); GLUCOSE 86 mg/dL (74-106); SODIUM 137 mmol/L (136-145); UREA NITROGEN 12 mg/dL (7-18); eGFR NON AFRICAN AMERICAN > 90 mL/min (90-120)
== END 2018-08-27 17:35 | disposition home or self-care (01) ==
LOC: D.CATH 11:33
PROVIDERS: Internal Medicine Cardiovascular Disease
DX: I25.119 Atherosclerotic heart disease of native coronary artery with unspecified angina pectoris (principal); Z01.812 Encounter for preprocedural laboratory examination

== ENCOUNTER 2018-11-06 06:18 | Outpatient (CLI) | payer MEDICARE, BC ==
[~2018-11-06] VITALS: Ht 170.2 cm; Wt 54.5 kg
--- NOTE | ~2018-11-06 | HEMODYNAMI ---
PATIENT:UNA DANIEL MEDICAL RECORD: [id number] : 46 LOCATION:[facility] ADMISSION DATE: 11/06/18 Generatedon:11/06/20189:18 Patient name: UNA DANIEL Patient #: [id number] SSN: DO B: 1950 Date of study: 11/06/2018 Page: Of Hemodynamic Procedure Report Patient Data Patient Demographics Procedure consent was obtained First Name: UNA Gender: Male Last Name: MARÍA : 1950 Middle Initial: GUILLERMO Age: 68 year(s) Patient #: [id number] Race: Additional ID: [id number] Contact details [address]: [address] [place] [address] State: [place] City: [place] Zip code: [address] Past Medical History Allergies: No known allergies Admission Admission Data Admission Date: 11/06/2018 Admission Time: 6:18 Procedure Procedure Types Cath Procedure Diagnostic Procedure LHC LHC w/Coronaries Sedation Charges Moderate Sedation up to 15 minutes PCI Procedure Coronary Stent Coronary Stent Initial Procedure Description Procedure Date Procedure Date: 11/06/2018 Procedure Start Time: 8:55 Procedure End Time: 9:17 Procedure Staff Name Function Minesh Rubio MD Performing Physician Ava Canela RT Monitor Celeste Aden RN Nurse Jero Berry RT Scrub Brandon Montesinos RT Explosion Welder Additional PCI Information PCI indication: Other Procedure Data Cath Procedure Fluoroscopy Diagnostic fluoroscopy Total fluoroscopy Time: 3.7 time: 3.7 min min Diagnostic fluoroscopy Total fluoroscopy dose: 415 dose: 415 mGy mGy Contrast Material Contrast Material Type Amount (ml) Isovue 300 84 Entry Location Entry Primary Successful Side Size Upsize Upsize Entry Closure Succes sful Closure Location (Fr) 1 (Fr) 2 (Fr) Remarks Device Remarks Radial Right 5 Fr 6 Fr Exoseal artery Short Estimated blood loss: 10 ml Diagnostic catheters Device Type Used For End Catheter Placement MULTIPACK JL 4.0 5Fr Left Coronary catheter Angiography MULTIPACK 3DRC 5Fr Right Coronary catheter Angiography MULTIPACK Pigtail 5 Fr LV Angiography catheter Procedure Complications No complications Procedure Medications Medication Administration Route Dosage Oxygen etCO2 Nasal cannula 2 l/min Lidocaine 2% added to field 20 Heparin Flush Bag added to field 2 bags (1000units/500ml NS) 0.9% NaCl I.V. 100 ml/hr Versed I.V. 1 mg Fentanyl I.V. 50 mcg Versed I.V. 1 mg Fentanyl I.V. 50 mcg Heparin Bolus I.V. 5500 units Hemodynamics Rest Heart Rate: 66 (bpm) Pressure Samples Time Site Value (mmHg) Purpose Heart Use Rate(bpm) 9:04 LV 90/-5,7 EDP 77 9:05 AO 87/52(66) Pullback 67 9:05 LV 98/-5,4 Pullback 67 Gradients Valve Time Site 1 Site 2 Mean SEP/DFP Peak To Heart Use (mmHg) (sec/min) Peak Rate (mmHg) (bpm) Aortic 9:05 LV AO 10 19 11 67 98/-5,4 87/52(66) Calculations Valve P-P Mean Valve Index Valve Source Name Gradient Area Flow (cm2) Aortic 11 10 11 10 Snapshots Pre Cath Intra NCS Post Cath Vital Signs Time Heart Resp SPO2 etCO2 NIBP Rhythm Pain Sedation Rate (ipm) (%) (mmHg) (mmHg) Status Level (bpm) 8:31:24 70 17 98 0 111/71(95) NSR 0 (11) 10(A) , No pain 8:35:24 66 16 99 32.3 109/74(83) NSR 0 (11) 10(A) , No pain 8:39:30 65 14 100 29.3 96/58(82) NSR 0 (11) 10(A) , No pain 8:43:27 64 14 99 32.3 95/67(75) NSR 0 (11) 10(A) , No pain 8:47:25 65 11 98 0 98/67(80) NSR 0 (11) 10(A) , No pain 8:51:23 67 11 97 27.8 101/66(79) NSR 0 (11) 10(A) , No pain 8:55:24 66 11 98 0 99/61(75) NSR 0 (11) 9(A) , No pain 8:59:26 61 11 99 39.1 104/57(78) NSR 0 (11) 9(A) , No pain 9:03:28 67 11 99 36.8 93/62(73) NSR 0 (11) 9(A) , No pain 9:07:27 66 12 99 31.6 106/58(83) NSR 0 (11) 9(A) , No pain 9:11:31 67 11 99 28.6 94/59(73) NSR 0 (11) 9(A) , No pain 9:15:31 71 21 99 35.3 91/61(71) NSR 0 (11) 10(A) , No pain Medications Time Medication Route Dose Verified Delivered Reason Notes Effectiveness by by 8:29:36 Oxygen etCO2 2 Minesh Buffie used for Nasal l/min Anthony Aden RN procedure cannula 8:29:43 Lidocaine 2% added 20ml Minesh Minesh for local to vial Anthony Rubio MD anesthetic field 8:30:02 Heparin Flush added 2 Minesh Minesh used for Bag to bags Anthony Rubio MD procedure (1000units/500ml field NS) 8:30:10 0.9% NaCl I.V. 100 Minesh Buffie Per physician ml/hr Anthony Aden RN 8:53:34 Versed I.V. 1 mg Minesh Buffie for sedation Anthony Aden RN 8:53:41 Fentanyl I.V. 50 Minesh Buffie for sedation mcg Anthony Aden RN 8:59:00 Versed I.V. 1 mg Minesh Buffie for sedation Anthony Aden RN 8:59:04 Fentanyl I.V. 50 Minesh Buffie for sedation mcg Anthony Aden RN 9:09:20 Heparin Bolus I.V. 5500 Minesh Buffie for verifi ed units Anthony Aden RN anticoagulation with dr rubio Procedure Log Time Note 8:05:34 Time tracking: Regular hours (M-F 7:00 - 5:00) 8:05:38 Plan of Care:Hemodynamics will remain stable., Cardiac rhythm will remain stable., Comfort level will be maintained., Respiratory function will remain adequate., Patient/ family verbilizes understanding of procedure., Procedure tolerated without complication., Recovers from procedure without complications.. 8:13:40 Brandon CASTILLO(R) sent for patient. Start room use. 8:22:30 Patient received from Pre/Post Procedure Room to CCL 2 Alert and oriented. Tansferred to table in Supine position. 8:22:32 Warm blankets applied, and dean hugger turned on for patient comfort. 8:22:32 Correct patient and procedure confirmed by team. 8:22:34 Signed procedure consent form obtained from patient. 8:22:34 ECG and BP/O2 sat monitors applied to patient. 8:22:43 H&P Date Dictated: 10/30/2018 Within 30 days and on chart., H&P Addendum completed by physician on day of procedure. (MUST COMPLETE FOR ALL OUTPATIENTS). 8:22:52 Pre-procedure instructions explained to patient. 8:22:52 Pre-op teaching completed and patient verbalized understanding. 8:22:54 Family in waiting room. 8:22:55 Patient NPO since Midnight. 8:24:56 Full Disclosure recording started 8:28:30 Snore? Yes 8:28:33 Previous problem with sedation/anesthesia? No ? 8:28:35 Sleep apnea? No 8:28:36 Deviated septum? No 8:28:37 Opens mouth fully? Yes 8:28:37 Sticks out tongue? Yes 8:28:40 Airway obstruction? Yes lobectomy 8:28:42 Dentures? Yes ? 8:28:56 Pre procedure: right dorsailis pedis pulse 2+ Normal; easily identifiable; not easily obliterated 8:29:03 Patient pain scale 0/10 ?. 8:29:16 IV patent on arrival in left forearm with 0.9% NaCl at O. 8:29:21 Lab results completed and on chart. 8:29:25 Right groin area was prepped with chlora-prep and draped in sterile fashion 8:29:26 Alarms reviewed by R. N. 8:29:26 Sharps counted by scrub and verified by R.N. 8:29:36 Oxygen 2 l/min etCO2 Nasal cannula was administered by Celeste Aden RN; used for procedure; 8:29:36 Patient allergic to No known allergies 8:29:38 Is the patient allergic to Iodine/contrast media? No. 8:29:39 Is patient on blood thinner?Yes 8:29:41 ACC The patient was administered the following blood thiners within the last 24 hours: ACCPlavix 8:29:43 Lidocaine 2% 20ml vial added to field was administered by Minesh Rubio MD; for local anesthetic; 8::43 Patient diabetic? No. 8:29:49 Rhythm: sinus rhythm 8:29:51 Vital chart was started 8:30:02 Heparin Flush Bag (1000units/500ml NS) 2 bags added to field was administered by Minesh Rubio MD; used for procedure; 8:30:10 0.9% NaCl 100 ml/hr I.V. was administered by Celeste Aden RN; Per physician; 8:30:52 Use device set Femoral Dx 8:30:53 ACIST Syringe (97717) opened to sterile field. 8:30:53 Bag Decanter (2002S) opened to sterile field. 8:30:54 Medline Cath Pack ([id number]) opened to sterile field. 8:30:54 DIAGNOSTIC WIRE .035 260cm J wire (788039) opened to sterile field. 8:30:55 ACIST Hand Control (56910) opened to sterile field. 8:30:56 ACIST Manifold (62825) opened to sterile field. 8:30:57 DIAGNOSTIC Multipack 5Fr catheter set (IJ7950) opened to sterile field. 8:30:57 Tegaderm 4 x 4 (1626W) opened to sterile field. 8:30:58 SHEATH 5FR [place] (XMI173) opened to sterile field. 8:32:15 Baseline sample Acquired. 8:44:19 Zero performed for pressure channel P1 8:52:50 Final Timeout: patient, procedure, and site verified with staff and physician. All members of the team are in agreement. 8:52:53 Right groin site verified by team. 8:52:57 Fire Safety Assessment: A--An alcohol-based skin anteseptic being used preoperatively., C--Open oxygen or nitrous oxide is being used., D--An ESU, laser, or fiber-optic light is being used. 8:53:00 Physical assessment completed. ASA score P 2 - A patient with mild systemic disease as per Minesh Rubio MD. 8:53:03 Sedation plan: IV Moderate Sedation Medication:Versed, Fentanyl 8:53:34 Versed 1 mg I.V. was administered by Buffie Aden RN; for sedation; 8:53:41 Fentanyl 50 mcg I.V. was administered by Celeste Aden RN; for sedation; 8:55:26 Procedure started. 8:55:29 Local anesthetic to right femoral artery with Lidocaine 2% by Minesh Rubio MD.INITIAL ACCESS ONLY 8:58:12 A 5 Fr sheath was inserted into the Right Radial artery 8:59:00 Versed 1 mg I.V. was administered by Celeste Aden RN; for sedation; 8:59:04 Fentanyl 50 mcg I.V. was administered by Celeste Aden RN; for sedation; 8:59:15 A MULTIPACK JL 4.0 5Fr catheter was advanced over the wire and used for Left Coronary Angiography. 9:01:32 Catheter removed. 9:01:42 A MULTIPACK 3DRC 5Fr catheter was advanced over the wire and used for Right Coronary Angiography. 9:02:52 Catheter removed. 9:03:17 A MULTIPACK Pigtail 5 Fr catheter was advanced over the wire and used for LV Angiography. 9:04:29 LV gram done using THOMPSON 9:04:33 Injector settings: Ml/sec: 10, Volume: 20, 9:04:35 LV hemodynamics recorded. 9:04:50 EF : 40 % 9:05:32 Catheter removed. 9:05:42 Use device set RUBIO PCI 9:05:44 SHEATH 6FR [place] (IJV556) opened to sterile field. 9:05:48 TUBING High Pressure Extension Tubing (Rubio) ([id number]) opened to sterile field. 9:05:48 INFLATOR Merit BasixCompak (YY7092) opened to sterile field. 9:05:50 BMW 300cm [place] 2 J wire ([id number]) opened to sterile field. 9:05:56 GUIDE 6FR AR 1.0 catheter ([id number]) opened to sterile field. 9:06:04 Sheath upsized to a 6 Fr Short. 9:06:19 Procedure type changed to Cath procedure, Diagnostic procedure, LHC, LHC w/Coronaries, Sedation Charges, Moderate Sedation up to 15 minutes, PCI procedure, Coronary Stent, Coronary Stent Initial 9:06:33 PCI Indication : Other 9:08:00 6 Fr AR 1.0 guide catheter was inserted over the wire 9:09:20 Heparin Bolus 5500 units I.V. was administered by Celeste Aden RN; for anticoagulation; verified with dr rubio 9:09:58 BMW wire advanced. 9:12:52 Place stent Inflation Number: 1 A JAMIE OTW 3.5 x 22 stent ([id number]) was prepped and advanced across the Mid RCA. The stent was deployed at 14 FRANDY for 0:18 (min:sec). 9:13:47 Stent catheter was removed intact over wire. 9:13:48 Wire removed. 9:13:50 Guide catheter removed. 9:14:01 Sheath removed intact; hemostasis achieved with Exoseal to the Right Radial artery. 9:14:04 Procedure ended.(Physican Out) 9:14:08 EXOSEAL 6Fr (EX600) opened to sterile field. 9:14:18 Fluoroscopy time 03.70 minutes. 9:14:21 Flurop Dose total: 415 9:14:21 Fluoroscopy dose: 415 mGy 9:14:25 Contrast amount:Isovue 300 84ml. 9:14:26 Sharps counted by scrub and verified by R.N. 9:14:27 Insertion/operative site no bleeding no hematoma. 9:14:30 Post-op/insertion site Right Femoral artery dressed using a 4 x 4 and Tegaderm. 9:14:33 Post right femoral artery:stable, clean and dry 9:14:34 Post Procedure Pulses reassessed and unchanged 9:14:37 Post-procedure physical assessment completed. ASA score P 2 - A patient with mild systemic disease as per Minesh Rubio MD. 9:14:40 Post procedure rhythm: unchanged. 9:14:46 Estimated blood loss: 10 ml 9:14:48 Post procedure instruction explained to patient.Patient verbalizes understanding. 9:14:48 Patient needs reinforcement of post procedure teaching. 9:14:53 Procedure Complication : No complications 9:14:56 See physician's report for complete and final results. 9:16:39 Procedure and supply charges have been captured, reviewed, submitted and are correct. 9:17:21 Vital chart was stopped 9:17:23 Report given to Pre/Post Procedure Room. 9:17:26 Patient transfered to Pre/Post Procedure Room with Stretcher. 9:17:34 Procedure ended. 9:17:34 Full Disclosure recording stopped 9:17:38 End room use (Document Last) Intervention Summary Intervention Notes Time ActionType Lesion and Equipment Action# Pressure Duration Attributes Used 9:12:52 Place stent Mid RCA JAMIE OTW 3.5 1 14 00:18 x 22 stent ([id number]) Device Usage Item Name Manufacture Quantity Catalog Hospital Part Current Mini [facility] Lot# / Number Charge Number Stock Stock Serial# Code ACIST Syringe Acist 1 21758 155927 350245 788002 20 (64097) Medical Systems Inc Bag Decanter Microtek 1 2001S 680794 79131 163938 5 () Medical Inc. Medline Cath Medline 1 [id number] 703377 13217 873433 5 Pack ([id number]) DIAGNOSTIC St [place] 1 582016 070942 506206 896841 30 WIRE .035 260cm J wire (435166) ACIST Hand Acist 1 68213 201416 209918 184367 5 Control Medical (87953) Systems Inc ACIST Acist 1 90799 921260 636462 951171 5 Manifold Medical (51287) Systems Inc DIAGNOSTIC Cardinal 1 RG0776 165961 18012 223183 30 Multipack 5Fr Health catheter set (ME9477) Tegaderm 4 x 3M 1 1626W 800705 013503 757783 5 4 (1626W) SHEATH 5FR Terumo 1 AJZ289 820680 707844 110641 5 [place] (TOI051) MULTIPACK JL Cardinal 1 377400 5 4.0 5Fr Health catheter MULTIPACK Cardinal 1 988738 5 3DRC 5Fr Health catheter MULTIPACK Cardinal 1 804312 5 Pigtail 5 Fr Health catheter SHEATH 6FR Terumo 1 JSO552 829341 648575 471859 40 [place] (CIB758) TUBING High Merit 1 [id number] 942776 11246 567569 10 Pressure Medical Extension Tubing (Rubio) ([id number]) INFLATOR Merit 1 XC3393 863237 927652 590902 15 Merit Medical BasixCompak (QZ9631) BMW 300cm [place] 1 [id number] 842693 836620 487524 5 [place] 2 J Vascular wire ([id number]) GUIDE 6FR AR Medtronic 1 BX2LS06 456080 07329 444831 1 1.0 catheter (FA5CX86) JAMIE OTW 3.5 Medtronic 1 [id number] 773510 4926700 904550 5 [id number] x 22 stent ([id number]) EXOSEAL 6Fr Cardinal 1 EX600 762225 915644 744990 10 (EX600) Health Signature Audit Creole Stage Time Signature Unsigned Intra-Procedure 11/06/2018 Ava 9:17:52 AM Counts RT(R) Signatures Monitor : Ava Signature : Counts RT Date : Time : [address] [place] [address]
[2018-11-06 06:45] VITALS: BP 159/82; Ht 170.2 cm; Wt 54.5 kg
[2018-11-06 06:55] LABS: BASOPHILS 0.1 % (0-2); EOSINOPHILS 1.7 % (0-7); HEMATOCRIT 37.7 % (42.0-54.0); HEMOGLOBIN 12.7 g/dL (13.5-17.5); MCH 31.4 pg (26.0-34.0); MCHC 33.7 g/dL (31.0-37.0); MCV 93.3 fL (80.0-100.0); MEAN PLATELET VOLUME 9.5 fL (7.4-10.4); MONOCYTES 7.5 % (2-11); NEUTROPHILS 70.7 % (40-80); RBC 4.04 10x6/uL (4.20-6.10); RDW 12.2 % (11.5-14.5); WBC 6.9 10x3/uL (4.8-10.8)
[2018-11-06 06:56] LABS: PLATELET COUNT 245 10x3/uL (130-400)
[2018-11-06 07:06] LABS: CALC OSMOLALITY 272 mosm/kg (275-300); CARBON DIOXIDE 27.7 mmol/L (21.0-32.0); CHLORIDE - SERUM 102 mmol/L (98-107); CREATININE - SERUM 0.8 mg/dL (0.6-1.3); GLUCOSE 87 mg/dL (74-106); POTASSIUM - SERUM 4.2 mmol/L (3.5-5.1); SODIUM 137 mmol/L (136-145); UREA NITROGEN 12 mg/dL (7-18); eGFR NON AFRICAN AMERICAN > 90 mL/min (90-120)
[2018-11-06] MEDS ORDERED: BAYER CHEWABLE81 MG PO (09:37)
--- NOTE | 2018-11-06 09:46 | NUR ---
RIGHT GROIN DRESSING C/D/I. NO S/S OF HEMATOMA NOTED. RIGHT PEDAL PULSE PALPABLE. DENIES NAUSEA. TOLERATING SIPS OF WATER. FAMILY AT BEDSIDE.
--- NOTE | 2018-11-06 10:18 | NUR ---
PT RESTING COMFORTABLY. RIGHT GROIN DRESSING C/D/I. NO S/S OF HEMATOMA NOTED. CALL LIGHT WITHIN REACH. VSS.
--- NOTE | 2018-11-06 10:50 | NUR ---
RIGHT GROIN DRESSING C/D/I. NO S/S OF HEMATOMA. RIGHT PEDAL PULSE PALPABLE. PT ALERT AND ORIENTED. NO NEEDS AT THIS TIME. VSS.
--- NOTE | 2018-11-06 11:25 | NUR ---
RIGHT GROIN DRESSING C/D/I. NO S/S OF HEMATOMA NOTED. VSS. FAMILY AT BEDSIDE. DR. CARMEN ROUNDED AND SPOKE WITH PT AND PT'S FAMILY.
--- NOTE | 2018-11-06 12:15 | NUR ---
RIGHT GROIN DRESSING C/D/I. NO S/S OF HEMATOMA NOTED. VSS. RIGHT PEDAL PULSE PALPABLE. PT'S HEAD OF BED INC TO 30 DEGREES. PT TOLERATED WELL. SET UP WITH SANDWICH TRAY. FAMILY AT BEDSIDE.
--- NOTE | 2018-11-06 12:49 | NUR ---
LEFT FA PIV D/C'D WITH CATH TIP INTACT. PT TOLERATED WELL. RIGHT GROIN DRESSING C/D/I. NO S/S OF HEMATOMA NOTED. PT INSTRUCTED TO GET DRESSED. FAMILY AT BEDSIDE FOR ASSIST.
--- NOTE | 2018-11-06 13:00 | NUR ---
PT TAKEN TO RESTROOM. VOIDED WITHOUT DIFFICULTY. BACK TO ROOM. DISCUSSED DISCHARGE INSTRUCTIONS WITH PT AND PT'S FAMILY. THEY VOICED UNDERSTANDING.
--- NOTE | 2018-11-06 13:03 | NUR ---
PT TAKEN OUT TO VEHICLE BY WHEELCHAIR. NO S/S OF DISTRESS NOTED. ALL BELONGINGS AND PAPERWORK IN HAND.
== END 2018-11-06 13:03 | disposition home or self-care (01) ==
LOC: D.CATH 06:18
PROVIDERS: ATTEND Internal Medicine Cardiovascular Disease
DX: I25.119 Atherosclerotic heart disease of native coronary artery with unspecified angina pectoris (principal); T82.855A Stenosis of coronary artery stent, initial encounter; Z01.812 Encounter for preprocedural laboratory examination
CPT/HCPCS: 93458; C9600

== ENCOUNTER 2019-09-06 04:17 | Outpatient (CLI) | payer MEDICARE, BC ==
[~2019-09-06] VITALS: Ht 170.2 cm; Wt 52.9 kg
--- NOTE | ~2019-09-06 | OP ---
PATIENT NAME: UNA DANIEL MEDICAL RECORD: [id number] :46 LOCATION:D.CAT ADMISSION DATE: SURGEON: LISY KENNEDY MD DATE OF OPERATION: 09/07/2019 PROCEDURES: 1. PTCA stent RCA. 2. PTCA stent left circumflex. 3. IFR. 4. Left heart catheterization. 5. Selective coronary therapy. 6. Left ventriculogram. INDICATION: Non-Q-wave myocardial infarction, unstable angina. PROCEDURE IN DETAIL: After informed consent was obtained and after a detailed description of the risks, benefits as well as alternative therapies, the patient elected to proceed with angiogram and angioplasty. The right femoral area was prepped and draped in normal sterile fashion. Right femoral artery was cannulated via modified Seldinger technique with placement of 6-Turkmen sheath. All catheters exchanged through this sheath. FINDINGS: Left ventriculogram was performed in standard 30-degree THOMPSON view, reveals global hypokinesis, ejection fraction 40%. SELECTIVE CORONARY ANGIOGRAPHY: 1. Left main showed no significant angiographic disease. 2. Left anterior descending has moderate irregularities, but no flow-limiting stenosis. 3. The left circumflex has previously placed stents with 90% in-stent restenosis. 4. The right coronary has previously placed stent and has 80% stenosis proximal to the previously placed stent. An IFR was abnormal. PTCA STENT OF THE RCA: The stent used was a 3.5 x 15 mm [place]. Result was 0% residual stenosis. PTCA STENT OF THE LEFT CIRCUMFLEX: The stent used 3.5 x 22 mm [place]. Result was 0% residual stenosis. OVERALL IMPRESSION: Successful PTCA stent of the RCA and left circumflex, both going from 80% to 90% initial stenosis to 0% residual. TRANSINT:[id number] Voice Confirmation ID: [id number] DOCUMENT ID: [id number] LISY KENNEDY MD CC: [id number] DICTATION DATE: 09/07/19 173 [facility] BLIND INSTALLER: 09/08/19 0010 [facility] CLI 09/07/[address] [address]
--- NOTE | ~2019-09-06 | DS ---
PATIENT:UNA DANIEL :46 MEDICAL RECORD: [id number] DISCHARGE SUMMARY ADMISSION DATE: 09/06/19 DISCHARGE DATE: 09/07/19 DATE OF DISCHARGE: 09/07/2019. DIAGNOSES: 1. Unstable angina. 2. Non-Q-wave myocardial infarction. 3. Coronary artery disease. 4. Percutaneous transluminal coronary angioplasty stent right coronary artery and left circumflex this admission. 5. Hypertension. 6. Hyperlipidemia. HOSPITAL COURSE: Mr. Daniel presents with a non-Q-wave myocardial infarction, found to have 2-vessel coronary artery disease on cardiac catheterization, underwent successful PTCA stent of the RCA and circumflex. He was discharged home with the addition of aspirin, Plavix, Pravachol to his medical regimen. He will follow up with [facility] in 1 month. TRANSINT:[id number] Voice Confirmation ID: [id number] DOCUMENT ID: [id number] LISY KENNEDY MD CC: [id number] DICTATION DATE: 09/07/19 1733 COLLEGE SCOUTING COORDINATOR: 09/08/19 0740 [facility] CLI 09/07/[address] [address]
--- NOTE | ~2019-09-06 | HEMODYNAMI ---
PATIENT:UNA DANIEL MEDICAL RECORD: [id number] : 46 LOCATION:[facility] D.2119 ADMISSION DATE: 09/06/19 Generatedon:09/07/201917:33 Patient name: UNA DANIEL Patient #: [id number] SSN: [id number] : 1950 Date of study: 09/07/2019 Page: Of Hemodynamic Procedure Report Patient Data Patient Demographics Procedure consent was obtained First Name: UNA Gender: Male Last Name: MARÍA : 1950 Middle Initial: GUILLERMO Age: 69 year(s) Patient #: [id number] Race: SSN: [id number] Additional ID: [id number] Contact details Address: [address] [place] [address] State: [place] City: [place] Zip code: [address] Past Medical History Allergies: No known allergies Admission Admission Data Admission Date: 09/06/2019 Admission Time: 4:17 Arrival Date: 09/07/2019 Arrival Time: 0:00 Admit Source: Emergency Insurance Payor: Medicare department [facility] #: [id number] Room #: D.2119 Height (in.): 66.93 BSA: 1.61 (m2) Height (cm.): 170 BMI: 18.34 (kg/m2) Weight (lbs.): 116.85 Weight (kg.): 53 Lab Results Lab Result Date: 09/07/2019 Lab Result Time: 0:00 Biochemistry Name Units Result Min Max BUN mg/dl 12 --(-*--)-- 7 18 Creatinine mg/dl 0.9 --(-*--)-- 0.6 1.3 eGFR ml/min 88.94828 -*(----)-- 90 120 NONAFRICAN CBC Name Units Result Min Max Hematocrit % 45.7 --(-*--)-- 42 54 Hemoglobin g/dl 15.7 --(--*-)-- 13.5 17.5 Procedure Procedure Types Cath Procedure Diagnostic Procedure [facility] LH w/Coronaries FFR/IVUS FFR Initial Sedation Charges Moderate Sedation up to 15 minutes PCI Procedure Coronary Stent Coronary Stent Initial x2 Hemochron ACT Test Procedure Description Procedure Date Procedure Date: 09/07/2019 Procedure Start Time: 17:06 Procedure End Time: 17:28 Procedure Staff Name Function Eusebio Yusuf MD Performing Physician Zachary Jimenes RT Monitor Alivia Heck RN Nurse Amanda Lugo RT Scrub Procedure Data Cath Procedure Fluoroscopy Diagnostic fluoroscopy Total fluoroscopy Time: 5.6 time: 5.6 min min Diagnostic fluoroscopy Total fluoroscopy dose: 565 dose: 565 mGy mGy Contrast Material Contrast Material Type Amount (ml) Isovue 370 115 Entry Location Entry Primary Successful Side Size Upsize Upsize Entry Closure Succes sful Closure Location (Fr) 1 (Fr) 2 (Fr) Remarks Device Remarks Femoral Right 5 Fr 6 Fr Exoseal artery Short Estimated blood loss: 10 ml Diagnostic catheters Device Type Used For End Catheter Placement MULTIPACK Pigtail 5 Fr Procedure catheter MULTIPACK JL 4.0 5Fr Procedure catheter MULTIPACK 3DRC 5Fr Procedure catheter Procedure Complications No complications Procedure Medications Medication Administration Route Dosage 0.9% NaCl I.V. 100 ml/hr Oxygen etCO2 Nasal cannula 2 l/min Lidocaine 2% added to field 20 Heparin Flush Bag added to field 2 bags (1000units/500ml NS) Versed I.V. 2 mg Fentanyl I.V. 100 mcg Heparin Bolus I.V. 4000 units Plavix P.O. 75 mg Hemodynamics Rest BSA: 1.61 (m2) HGB: 15.7 (g/dl) O2 Consumption: Estimated: 195.54 (ml/min) O2 Co nsumption indexed: Estimated:121.45 (ml/min/m) Heart Rate: 86 (bpm) Snapshots Pre Cath Intra NCS Post Cath Vital Signs Time Heart Resp SPO2 etCO2 NIBP Rhythm Pain Sedation Rate (ipm) (%) (mmHg) (mmHg) Status Level (bpm) 16:57:11 90 17 98 24.7 114/73(82) NSR 0 (11) 10(A) , No pain 17:01:15 96 14 100 34.4 106/79(92) NSR 0 (11) 10(A) , No pain 17:05:19 92 10 99 31.4 99/71(87) NSR 0 (11) 10(A) , No pain 17:09:20 92 12 99 37.4 100/69(96) NSR 0 (11) 9(A) , No pain 17:13:22 90 14 98 35.2 113/68(85) NSR 0 (11) 9(A) , No pain 17:17:27 84 14 98 33.7 111/71(84) NSR 0 (11) 9(A) , No pain 17:21:31 93 11 99 35.9 100/75(89) NSR 0 (11) 10(A) , No pain 17:25:27 95 19 99 21.7 100/72(81) NSR 0 (11) 10(A) , No pain Medications Time Medication Route Dose Verified Delivered Reason Notes Effectiveness by by 16:56:20 0.9% NaCl I.V. 100 Eusebio Alivia used for ml/hr Paramjit Heck cider maker 16:56:27 Oxygen etCO2 2 Eusebio Alivia used for Nasal l/min Paramjit Heck procedure cannula RN 16:56:33 Lidocaine 2% added 20ml Eusebio Eusebio for local to vial Paramjit Yusuf MD anesthetic field 16:56:36 Heparin Flush added 2 Eusebio Eusebio used for Bag to bags Paramjit Yusuf MD procedure (1000units/500ml field NS) 17:04:31 Versed I.V. 2 mg Eusebio Alivia for sedation Paramjit Heck RN 17:04:37 Fentanyl I.V. 100 Eusebio Alivia for sedation mcg Paramjit Heck RN 17:14:13 Heparin Bolus I.V. 4000 Eusebio Alivia for verif ied units Paramjit Heck anticoagulation with Dr. TAZ Yusuf 17:14:28 Plavix P.O. 75 mg Eusebio Alivia for Paramjit Heck antiplatelet RN therapy Procedure Log Time Note 16:26:02 Zachary CASTILLO(R) sent for patient. Start room use. 16:26:03 Time tracking: Regular hours (M-F 7:00 - 5:00) 16:26:08 Plan of Care:Hemodynamics will remain stable., Cardiac rhythm will remain stable., Comfort level will be maintained., Respiratory function will remain adequate., Patient/ family verbilizes understanding of procedure., Procedure tolerated without complication., Recovers from procedure without complications.. 16:39:42 Informed consent obtained and on chart 16:41:38 Arrival Date: 09/07/2019 12:00:00 AM 16:42:05 Insurance Payor : Medicare 16:42:08 Admit Source: Emergency department 16:42:15 Patient Height : 66.93 inches 16:42:22 Patient Weight : 116.85 lbs 16:43:12 Lab Result : eGFR NONAFRICAN 88.80162 ml/min 16:43:12 Lab Result : Creatinine 0.9 mg/dl 16:43:12 Lab Result : BUN 12 mg/dl 16:43:12 Lab Result : Hematocrit 45.7 % 16:43:12 Lab Result : Hemoglobin 15.7 g/dl 16:43:51 Procedure Status Urgent Heart Cath (IP). 16:44:23 Patient received from Med II to CCL 1 Alert and oriented. Tansferred to table in Supine position. 16:55:44 Warm blankets applied, and dean hugger turned on for patient comfort. 16:55:45 Correct patient and procedure confirmed by team. 16:55:46 ECG and BP/O2 sat monitors applied to patient. 16:56:11 Vital chart was started 16:56:20 0.9% NaCl 100 ml/hr I.V. was administered by Alivia Heck RN; used for procedure; Verbal order read back and verified. 16:56:27 Oxygen 2 l/min etCO2 Nasal cannula was administered by Alivia Heck RN; used for procedure; Verbal order read back and verified. 16:56:33 Lidocaine 2% 20ml vial added to field was administered by Eusebio Yusuf MD; for local anesthetic; Verbal order read back and verified. 16:56:36 Heparin Flush Bag (1000units/500ml NS) 2 bags added to field was administered by Eusebio Yusuf MD; used for procedure; Verbal order read back and verified. 16:56:39 Baseline sample Acquired. 16:56:55 Rhythm: sinus rhythm 16:56:56 Full Disclosure recording started 16:57:07 H&P Date Dictated: 09/06/2019 Within 30 days and on chart.. 16:57:08 Pre-procedure instructions explained to patient. 16:57:08 Pre-op teaching completed and patient verbalized understanding. 16:57:11 Family in patients room. 16:57:13 Patient NPO since Midnight. 16:57:18 Is the patient allergic to Iodine/contrast media? No. 16:57:20 Is patient on blood thinner?Yes 16:57:23 ACC The patient was administered the following blood thiners within the last 24 hours: ACCPlavix 16:57:24 Patient diabetic? No. 16:57:26 Previous problem with sedation/anesthesia? No ? 16:57:27 Snore? Yes 16:57:28 Sleep apnea? No 16:57:29 Deviated septum? No 16:57:31 Opens mouth fully? Yes 16:57:36 Sticks out tongue? Yes 16:57:38 Airway obstruction? No ? 16:57:43 Dentures? Yes IN TIGHT 16:57:46 Pre procedure: right dorsailis pedis pulse 1+ Palpable, but thready & weak; easily obliterated 16:58:06 RIGHT RADIAL PULSE TOO WEAK 16:58:08 Patient pain scale 0/10 ?. 16:58:16 IV patent on arrival in left antecubital with 0.9% NaCl at [facility]. 16:58:18 Lab results completed and on chart. 17:00:55 Right groin area was prepped with chlora-prep and draped in sterile fashion 17:00:57 Alarms reviewed by R. N. 17:00:57 Sharps counted by scrub and verified by R.N. 17:01:01 Use device set Femoral Dx 17:01:04 ACIST Syringe (84151) opened to sterile field. 17:01:04 Bag Decanter (2002S) opened to sterile field. 17:01:05 Medline Cath Pack ([id number]) opened to sterile field. 17:01:06 ACIST Hand Control (69791) opened to sterile field. 17:01:06 ACIST Manifold (55515) opened to sterile field. 17:01:08 Tegaderm 4 x 4 (1626W) opened to sterile field. 17:01:09 DIAGNOSTIC Multipack 5Fr catheter set ([id number]) opened to sterile field. 17:01:10 SHEATH 5FR Bunn (HIY507) opened to sterile field. 17:01:10 EMERALD Guide Wire (493-928) opened to sterile field. 17:02:03 Physician arrived 17:02:04 --------ALL STOP TIME OUT------ 17:02:04 Final Timeout: patient, procedure, and site verified with staff and physician. All members of the team are in agreement. 17:02:07 Right groin site verified by team. 17:02:10 Fire Safety Assessment: A--An alcohol-based skin anteseptic being used preoperatively., C--Open oxygen or nitrous oxide is being used., D--An ESU, laser, or fiber-optic light is being used. 17:02:13 Physical assessment completed. ASA score P 2 - A patient with mild systemic disease as per Eusebio Yusuf MD. 17:02:28 2) 60-89 Mildly reduced kidney function, and other findings (as for stage 1) point to kidney disease. 17:02:40 Maximum allowable contrast dose (3.7 X eGFR X 0.75)244 ml. 17:02:44 Sedation plan: IV Moderate Sedation Medication:Versed, Fentanyl 17:04:31 Versed 2 mg I.V. was administered by Alivia Heck RN; for sedation; Verbal order read back and verified. 17:04:37 Fentanyl 100 mcg I.V. was administered by Alivia Heck RN; for sedation; Verbal order read back and verified. 17:06:02 Procedure started. 17:06:06 Local anesthetic to right femoral artery with Lidocaine 2% by Eusebio Yusuf MD.INITIAL ACCESS ONLY 17:06:25 A 5 Fr sheath was inserted into the Right Femoral artery 17:07:12 A MULTIPACK Pigtail 5 Fr catheter was advanced over the wire and used for Procedure. 17:08:00 LV angiography performed. 17:08:03 LV gram done using THOMPSON 17:08:08 EF : 40 % 17:08:11 Injector settings: Ml/sec: 5, Volume: 15, 17:08:30 Catheter removed. 17:08:35 A MULTIPACK JL 4.0 5Fr catheter was advanced over the wire and used for Procedure. 17:09:50 LCA angiography performed. 17:10:02 Catheter removed. 17:10:43 A MULTIPACK 3DRC 5Fr catheter was advanced over the wire and used for Procedure. 17:11:26 RCA angiography performed. 17:11:29 ACCDominant side:Left 17:11:41 Catheter removed. 17:11:44 Use device set [facility] PCI 17:11:51 Yawkey Verrata Plus pressure wire ([id number]) opened to sterile field. 17:11:53 SHEATH 6FR Bunn (SMZ681) opened to sterile field. 17:11:59 INFLATOR Merit BasixCompak (VY8279) opened to sterile field. 17:12:33 CHOICE PT Extra Support 182cm wire ([id number]) opened to sterile field. 17:12:34 GUIDE 6FR 3DRC SH catheter ([id number]) opened to sterile field. 17:13:00 GUIDE 6FR XBLAD 4.0 SH catheter ([id number]) opened to sterile field. 17:13:09 Sheath upsized to a 6 Fr Short. 17:14:13 Heparin Bolus 4000 units I.V. was administered by Alivia Heck RN; for anticoagulation; verified with Dr. Yusuf Verbal order read back and verified. 17:14:28 Plavix 75 mg P.O. was administered by Alivia Heck RN; for antiplatelet therapy; Verbal order read back and verified. 17:14:37 6 Fr 3DRC guide catheter was inserted over the wire 17:14:40 FFR/IFR wire advanced. 17:14:41 Wire advanced across lesion. 17:15:25 pRCA lesion measured at 0.76 with IFR 17:16:15 Pre PCI Site: [place] pRCA has 80% stenosis. 17:16:26 ACC Pre-intervention WILEY Flow is 3. 17:16:53 Place stent Inflation Number: 1 A JAMIE RX 3.5 x 15 stent ([id number]) was prepped and advanced across the Prox RCA 80. The stent was deployed at 23 FRANDY for 0:10 (min:sec) 0. 17:18:02 Post PCI Site: [place] pRCA has 0% stenosis. 17:18:08 ACC Post-intervention WILEY Flow is 3. 17:18:09 Stent catheter was removed intact over wire. 17:18:13 Wire removed. 17:18:13 Guide catheter removed. 17:18:25 Pre PCI Site: [place] pCirc has 90% stenosis. 17:18:29 ACC Pre-intervention WILEY Flow is 3. 17:18:34 6 Fr XBLAD 4 SH guide catheter was inserted over the wire 17:19:29 CPTXS wire advanced. 17:20:43 Wire advanced across lesion. 17:21:38 Place stent Inflation Number: 1 A JAMIE RX 3.5 x 22 stent ([id number]) was prepped and advanced across the Prox CX 90. The stent was deployed at 13 FRANDY for 0:10 (min:sec) 0. 17:21:55 Inflation number: 2 The stent balloon was then re-inflated across the Prox CX 0 to 13 FRANDY for 0:10 (min:sec) . 17:24:19 Stent catheter was removed intact over wire. 17:24:20 Wire removed. 17:24:21 Guide catheter removed. 17:24:29 Post PCI Site: [place] pCirc has 0% stenosis. 17:24:30 ACT drawn and resulted at >400 seconds. (normal therapeutic range 180-240 seconds). 17:24:32 ACC Post-intervention WILEY Flow is 3. 17:24:35 EXOSEAL 6Fr (EX600) opened to sterile field. 17:24:46 Sheath removed intact; hemostasis achieved with Exoseal to the Right Femoral artery. 17:24:49 Procedure ended.(Physican Out) 17:25:09 Fluoroscopy time 05.60 minutes. 17:25:12 Flurop Dose total: 565 17:25:13 Fluoroscopy dose: 565 mGy 17:25:18 Dose Area Product 41435 mGy/cm. 17:25:23 Contrast amount:Isovue 370 115ml. 17:25:25 Maximum allowable dose exceeded? No. 17:25:27 Sharps counted by scrub and verified by R.N. 17:25:28 Insertion/operative site no bleeding no hematoma. 17:25:32 Post-op/insertion site Right Femoral artery dressed using a 4 x 4 and Tegaderm. 17:25:35 Post Procedure Pulses reassessed and unchanged 17:25:38 Post-procedure physical assessment completed. ASA score P 2 - A patient with mild systemic disease as per Eusebio Yusuf MD. 17:25:52 Post procedure rhythm: unchanged. 17:26:02 Estimated blood loss: 10 ml 17:26:33 Post procedure instruction explained to patient.Patient verbalizes understanding. 17:26:34 Patient needs reinforcement of post procedure teaching. 17:27:10 Procedure type changed to Cath procedure, Diagnostic procedure, LHC, [facility] w/Coronaries, FFR/IVUS, FFR Initial, Sedation Charges, Moderate Sedation up to 15 minutes, PCI procedure, Coronary Stent, Coronary Stent Initial x2, Hemochron ACT Test 17:27:12 Procedure and supply charges have been captured, reviewed, submitted and are correct. 17:27:17 Procedure Complication : No complications 17:28:31 Vital chart was stopped 17:28:33 [facility] Findings: MVD- PCI performed (see procedure note) 17:28:36 Operative report dictated upon procedure completion. 17:28:37 See physician's report for complete and final results. 17:28:38 Report given to PCU. 17:28:41 Patient transfered to PCU with Bed. 17:28:44 Procedure ended. 17:28:44 Full Disclosure recording stopped 17:31:05 End room use (Document Last) 17:31:19 End room use (Document Last) 17:32:01 End room use (Document Last) Intervention Summary Intervention Notes Time ActionType Lesion and Equipment Used Action# Pressure Duration Attributes 17:16:53 Place stent Prox RCA JAMIE RX 3.5 x 1 23 00:10 15 stent ([id number]) 17:21:38 Place stent Prox CX JAMIE RX 3.5 x 1 13 00:10 22 stent ([id number]) 17:21:55 Reinflate Prox CX JAMIE RX 3.5 x 2 13 00:10 stent 22 stent balloon ([id number]) Device Usage Item Name Manufacture Quantity Catalog Number Hospital Part Current Minimal Lot# / Charge Number Stock Stock Serial# Code ACIST Syringe Acist 1 22697 220354 829294 [id number] 20 (08318) Medical Systems Inc Bag Decanter Microtek 1 709327 97367 724128 5 () Medical Inc. Medline Cath Medline 1 [id number] 368981 06386 512913 5 Pack ([id number]) ACIST Hand Acist 1 15847 524283 275937 563589 5 Control Medical (43532) Systems Inc ACIST Manifold Acist 1 23074 519076 928710 707735 5 (42892) Medical Systems Inc Tegaderm 4 x 4 3M 1 1626W 767336 178574 874810 5 (1626W) DIAGNOSTIC Cardinal 1 LT7288 804402 82717 997618 30 Multipack 5Fr Health catheter set (HA3867) SHEATH 5FR Terumo 1 QWF026 109946 806892 732656 5 Bunn (WRV648) EMERALD Guide Cardinal 1 502-455 400586 815184 415244 5 Wire (502-455) Health MULTIPACK Cardinal 1 811680 5 Pigtail 5 Fr Health catheter MULTIPACK JL Cardinal 1 744608 5 4.0 5Fr Health catheter MULTIPACK 3DRC Cardinal 1 954166 5 5Fr catheter Health Yawkey Yawkey 1 97421U 962677 580009414 098804 5 Verrata Plus pressure wire (21409N) SHEATH 6FR Terumo 1 GZQ950 030292 760936 990169 40 Bunn (TKH904) INFLATOR Merit Merit 1 VI2447 815064 188584 980025 15 Drink Up DowntownmtShuropody (GJ0546) CHOICE PT Gully 1 [id number] 473271 308399 430848 5 Extra Support Scientific 182cm wire (2622622P7) GUIDE 6FR 3DRC Medtronic 1 [id number] 833403 684995 973244 1 catheter ([id number]) GUIDE 6FR Cardinal 1 [id number] 530647 8468 153424 3 XBLAD 4.0 [facility] catheter ([id number]) JAMIE RX 3.5 x Medtronic 1 [id number] 431135 5951311 871638 5 [id number] 15 stent ([id number]) JAMIE RX 3.5 x Medtronic 1 [id number] 016607 0940254 413640 5 [id number] 22 stent ([id number]) EXOSEAL 6Fr Cardinal 1 EX600 721493 226198 737419 10 (EX600) Health Signature Audit [place] Stage Time Signature Unsigned Intra-Procedure 09/07/2019 Zachary Jimenes 5:31:19 PM RT(R) Intra-Procedure 09/07/2019 Alivia Heck 5:32:01 PM RN Intra-Procedure 09/07/2019 Eusebio Yusuf 5:33:15 PM [facility] [address] [place] [address]
--- NOTE | ~2019-09-06 | EC ---
PATIENT:UNA DANIEL DATE OF SERVICE: 09/06/19 SEX: M MEDICAL RECORD: [id number] DATE OF : [birth year] LOCATION:D.M2 D.211 AGE OF PATIENT: 69 ADMISSION DATE: 09/06/19 REFERRING PHYSICIAN: INTERPRETING PHYSICIAN: LISY YUSUF MD ECHOCARDIOGRAM REPORT ECHO CHARGES 4 ECHO COMPLETE Date: 09/06/19 CLINICAL DIAGNOSIS: OH HX CAD ECHOCARDIOGRAPHIC MEASUREMENTS (adult normal given) AC root (d.<3.7cm) 3.9 cm LV Septum d (<1.2 cm> 1.1 cm Valve Excursion 2.3 cm LV Septum (systole) 1.3 cm Left Atria (s.<4.0cm> 3.6 cm LVPW d(<1.2cm) 1.3 cm RV (d.<2.3cm) 4.1 cm LVPW (sytole) 1.6 cm LV diastole(<5.6CM) 5.6 cm MV E-F(>70mm/sec) cm LV systole 4.2 cm LVOT Diameter 2.3 cm MV exc.(>10mm) 1.5 cm Est.ejection fraction (50-75%) % DOPPLER: LVIT cm/sec A 97.0 cm/sec E 44.0 cm/sec LA cm/sec RVSP 37 mmHg LVOT 95 cm/sec AOP1/2T m/s Asc. Ao 96 cm/sec RVOT 53 cm/sec RA cm/sec PA 83 cm/sec AV Gradient Peak 3.72 mmHg AV Mean 2.12 mmHg AV Area 4.5 cm MV Gradient Peak 4.89 mmHg MV Mean 1.31 mmHg MV Area cm COMMENTS: Tapper Bit: Maria Del Carmen CHAVIRA Strap Machine Operator Automatic: 1 Dr. Yusuf TAPE# PACS Pericardial Effusion N DATE OF SERVICE: 09/06/2019 FINDINGS: 1. Left ventricular chamber size is within normal limits. Left ventricular systolic function is normal. Overall ejection fraction estimated at 50% to 55%. 2. Left atrium is within normal limits at 3.6 cm. Right atrium and right ventricle chamber sizes are mildly dilated. 3. Valvular structures have normal structure and motion. 4. Doppler interrogation reveals mild mitral regurgitation, mild tricuspid regurgitation. No other valvular insufficiency or stenosis. Pulmonary systolic ECHOCARDIOGRAM REPORT [id number] UNA DANIEL pressure estimated at 37 mmHg. 5. No evidence of pericardial effusion or left ventricular thrombus. TRANSINT:[id number] Voice Confirmation ID: [id number] DOCUMENT ID: [id number] LISY YUSUF MD CC: [id number] DICTATION DATE: 09/07/19 1003 AFRICAN HISTORY PROFESSOR: 09/07/19 1424 [facility] [address] [place] [address]
[~2019-09-06 04:17] MED LIST changes: +BAYER CHEWABLE81 MG PO
[2019-09-06] MEDS ORDERED: SPIRIVA RESPIMAT4 G1 INH (04:20)
[2019-09-06] MEDS ORDERED: FLUTICASONE PRO16 GM NASAL (04:20)
[2019-09-06 04:28] LABS: BASOPHILS 0.2 % (0-2); EOSINOPHILS 1.3 % (0-7); HEMATOCRIT 45.7 % (42.0-54.0); HEMOGLOBIN 15.7 g/dL (13.5-17.5); IMMATURE GRANULOCYTES 0.4 % (0-5); LYMPHOCYTES 10.2 % (15-50); MCH 32.4 pg (26.0-34.0); MCHC 34.4 g/dL (31.0-37.0); MCV 94.2 fL (80.0-100.0); MEAN PLATELET VOLUME 9.5 fL (7.4-10.4); MONOCYTES 10.1 % (2-11); NEUTROPHILS 77.8 % (40-80); RBC 4.85 10x6/uL (4.20-6.10); RDW 12.6 % (11.5-14.5); WBC 5.5 10x3/uL (4.8-10.8)
[2019-09-06 04:29] LABS: PLATELET COUNT 161 10x3/uL (130-400)
[2019-09-06 04:48] LABS: CALC OSMOLALITY 267 mosm/kg (275-300); CALCIUM 8.6 mg/dL (8.5-10.1); CARBON DIOXIDE 30.3 mmol/L (21.0-32.0); CHLORIDE - SERUM 96 mmol/L (98-107); CREATININE - SERUM 0.9 mg/dL (0.6-1.3); GLUCOSE 95 mg/dL (74-106); POTASSIUM - SERUM 3.7 mmol/L (3.5-5.1); SODIUM 134 mmol/L (136-145); UREA NITROGEN 12 mg/dL (7-18); eGFR NON AFRICAN AMERICAN 88 mL/min (90-120)
[2019-09-06 05:01] LABS: APTT 26.2 SECONDS (22.8-39.4); INR 0.99 (0.85-1.17); PROTIME 12.6 SECONDS (11.6-15.0)
[2019-09-06 05:10] LABS: ALBUMIN 3.2 g/dL (3.4-5.0); ALKALINE PHOSPHATASE 87 U/L (46-116); ALT (SGPT) 16 U/L (10-68); BILIRUBIN - TOTAL 1.28 mg/dL (0.2-1.3); C-REACTIVE PROTEIN 0.4 mg/dL (0.0-0.9); CREATINE KINASE 41 UL (21-232); LIPASE 72 U/L (73-393); MAGNESIUM - SERUM 1.7 mg/dL (1.8-2.4); PRO BNP 516 pg/mL (0-125); PROTEIN - SERUM 6.8 g/dL (6.4-8.2)
[2019-09-06 05:13] LABS: TROPONIN-I 3.772 ng/mL (0.000-0.060)
--- NOTE | 2019-09-06 06:33 | NUR ---
RECEIVED FROM ER, A&O X4, HISTORY AND MEDS COMPLETE, BED IS LOW, SRX2, CALL LIGHT IN REACH, WILL CONTINUE PLAN OF CARE
[2019-09-06 07:34] VITALS: BP 143/79; BMI 18.2
[2019-09-06 08:19] VITALS: BP 143/89
[2019-09-06 10:42] VITALS: Ht 170.2 cm; Wt 52.9 kg
--- NOTE | 2019-09-06 11:05 | NUR ---
AM MEDS GIVEN AT THIS TIME. PT RESTING COMFORTABLY IN BED, DENIES ANY NEEDS AT THIS TIME. CALL LIGHT IN REACH, NAD NOTED, WILL CONTINUE TO MONITOR.
[2019-09-06 11:48] VITALS: BP 130/84
[2019-09-06 16:44] VITALS: BP 119/86
--- NOTE | 2019-09-06 19:20 | NUR ---
RECEIVED REPORT, WILL ASSUME CARE OF PT, DENIES ANY NEEDS AT THIS TIME, EXPLAINED HE WILL BE NPO AFTER MIDNIGHT, FOR HEART CATH, BED IS LOW, SRX2, CALL LIGHT IN REACH, WILL CONTINUE PLAN OF CARE
[2019-09-06 20:00] VITALS: BP 135/91
[2019-09-07] VITALS: BP 138/86
[2019-09-07 04:00] VITALS: BP 134/88
[2019-09-07 09:20] VITALS: BP 149/88
--- NOTE | 2019-09-07 16:50 | NUR ---
PRE-OPS GIVEN. TO LIGHT ADJUSTER BY BED.
--- NOTE | 2019-09-07 17:31 | HP ---
PATIENT: UNA DANIEL MEDICAL RECORD: [id number] ACCOUNT: [id number] LOCATION:[address]19 : [birth year] ADMISSION DATE: 09/06/19 PCP: MAYITO TAY MD HISTORY AND PHYSICAL EXAMINATION DIAGNOSES: 1. Non-Q-wave myocardial infarction. 2. Coronary artery disease. 3. Previous cardiac stenting. 4. Hypertension. 5. Smoking history. 6. Hyperlipidemia. HISTORY OF PRESENT ILLNESS: Mr. Daniel presents with 1-month of increasing angina with chest pain radiating to the back. This is like his previous angina. Last cardiac intervention was in September, has been progressing. Got very severe last night. His troponin is positive for non-Q-wave myocardial infarction. He is pain free at this time. EKG is with no acute changes. PHYSICAL EXAMINATION: CONSTITUTIONAL/GENERAL APPEARANCE: Well nourished, well developed, appears stated age. EYES: Lids and conjunctivae noninjected. No discharge. No pallor. ENT: Lips within normal limit. No cyanosis. No pallor. NECK: Carotid arteries, bilateral normal upstroke. No bruits. No thrills. No jugular venous pressure or distention. CERVICAL LYMPH NODES: Nontender. Nonenlarged. THYROID: Not enlarged. No nodules. CARDIOVASCULAR: Precordial exam, nondisplaced. No heaves or pericardial thrills. Rate and rhythm, regular. Heart sounds, normal S1, normal S2. No S3, no gallop, no rub. Systolic murmur, not heard. Diastolic murmur, not heard. RESPIRATORY: Respiratory effort, unlabored. Normal curvature. No thoracic deformity. No chest wall tenderness. Percussion, resonant. Auscultation, clear. No wheezes, no rales, no rhonchi. ABDOMEN: Soft, nondistended, nontender. No abdominal pain, no vomiting and normal appetite. MUSCULOSKELETAL: No joint tenderness, normal gait, normal tone. SKIN: Warm and dry. OVERALL IMPRESSION: Non-Q-wave myocardial infarction, most likely he has recurrent hemodynamically significant coronary artery disease. We will proceed with coronary angiography in the a.m. Further care depends upon the findings of the angiography. TRANSINT:[id number] Voice Confirmation ID: [id number] DOCUMENT ID: [id number] HISTORY AND PHYSICAL [id number] UNA DANIEL JEFFREY MD at 1731 CC: [id number] DICTATION DATE: 09/06/19 1041 CLINICAL TRIALS SYSTEMS ADMINISTRATOR: 09/06/19 1139 [id number] [place] [address]
--- NOTE | 2019-09-07 17:50 | NUR ---
BACK FROM MACHINE OPERATOR ASSISTANT. VS WNL. RIGHT GROIN STABLE WITHOUT BLEEDING OR HEMATOMA NOTED. WILL MONITOR.
[2019-09-07 17:56] VITALS: BP 121/77
--- NOTE | 2019-09-07 19:44 | NUR ---
RECEIVED BEDSIDE REPORT. PATIENT IS ALERT AND ORIENTED, RESTING COMFORTABLY IN BED. RESPIRATIONS ARE EVEN AND UNLABORED. NO S/S OF DISTRESS. NO C/O PAIN. CALL LIGHT WITHIN REACH. WILL CPOC.
[2019-09-07 20:00] VITALS: BP 116/86
--- NOTE | 2019-09-07 21:51 | NUR ---
PATIENT BEING DISCHARGED. IV REMOVED. CATHETER INTACT. RIGHT GROIN INSERTION SITE SOFT. NO SIGNS OF BLEEDING, HEMATOMA, BRUISING. WENT OVER DISCHARGE INSTRUCTIONS WITH PATIENT AND SPOUSE. PATIENT ESCORTED OF UNIT VIA WHEELCHAIR BY BOUBACAR.
== END 2019-09-07 21:57 | disposition home or self-care (01) ==
LOC: D.CATH 04:17 → D.ER 04:17 → D.M2 05:36 → EDSTATUS 05:46 → D.CATH 09-07 21:57
PROVIDERS: Family Medicine; ATTEND Internal Medicine Interventional Cardiology
DX: I20.0 Unstable angina (principal); I21.4 Non-ST elevation (NSTEMI) myocardial infarction; R07.9 Chest pain, unspecified; J44.9 Chronic obstructive pulmonary disease, unspecified; Z72.0 Tobacco use; I10 Essential (primary) hypertension; Z95.5 Presence of coronary angioplasty implant and graft
CPT/HCPCS: 93458; 93571; C9600 ×2

== ENCOUNTER 2019-10-05 19:48 | Emergency (ER) | payer MEDICARE, BC ==
[~2019-10-05] VITALS: Ht 170.2 cm; Wt 54.1 kg
[~2019-10-05 19:48] MED LIST changes: +FLUTICASONE PRO16 GM NASAL; +SPIRIVA RESPIMAT4 G1 INH
[2019-10-05 19:58] VITALS: Ht 170.2 cm; Wt 54.1 kg
[2019-10-05] MEDS ORDERED: PLAVIX75 MG PO (20:00)
[2019-10-05] MEDS ORDERED: LISINOPRIL-HCT1 EAC4 PO (20:01)
[2019-10-05 22:08] VITALS: BP 134/71
== END 2019-10-05 22:08 | disposition home or self-care (01) ==
LOC: D.ER 19:48
DX: R93.0 Abnormal findings on diagnostic imaging of skull and head, not elsewhere classified (principal); I10 Essential (primary) hypertension; Z95.5 Presence of coronary angioplasty implant and graft; J44.9 Chronic obstructive pulmonary disease, unspecified; M54.9 Dorsalgia, unspecified